=== PATIENT | female | born 1955 | race Caucasian/White ===

== ENCOUNTER 2018-08-13 22:22 | Observation (INO) | payer MEDICARE, OTHER ==
[2018-08-13] MEDS ORDERED: Sodium Chloride 0.9% 10 ML Syringe FLUSH PRN (22:41)
[2018-08-13] MEDS ORDERED: Sodium Chloride 0.9% 2.5 ML Syringe FLUSH PRN (22:41)
[2018-08-13] MEDS ORDERED: Sodium Chloride 0.9% 1,000 ML IV ONE (22:41)
[2018-08-13] MEDS ORDERED: Aspirin 81 MG Tab.Chew PO ONE (22:41)
--- NOTE | 2018-08-13 22:45 | EDM.PDOC ---
ED HPI GENERAL MEDICAL PROBLEM - General Chief Complaint: Chest Pain Stated Complaint: CHEST PAIN Time Seen by Provider: 08/13/18 22:33 - History of Present Illness INITIAL COMMENTS - FREE TEXT/NARRATIVE: HISTORY AND PHYSICAL: History of present illness: The patient is a 63-year-old female who is here visiting from [place] and has a history of cardiac disease with angioplasty and stent 6 months ago of her LAD and is currently on Brilinta and presents with 2 days of feeling weak and lightheaded, not dizzy, without passing out or blacking out and feeling very warm and lethargic. She says that for the last 2 nights while she was trying to sleep she was having a pain in her left jaw but not in her chest seemed to go up to her mandaen and she was also having some lateral left neck pain. She said that she came in today because she was having some left chest pain which did not radiate and she took one nitroglycerin and pain is gone. She is not sweating with either the headache pain or the chest pain she has no abdominal pain nausea vomiting and says she has been urinating more than usual. She says that she is eating and drinking normally and has no flank pain or back pain and no focal weakness in arms or legs. She says that she does feels very drained and that something isn't right but she has not had a fever at home only feels hot. She's having no cough or upper respiratory symptoms. Currently in the ED she has only vague complaints of feeling generalized weakness and not quite right. She says that she does have a headache because she took the nitroglycerin prior to that she was not having a headache. She says that her prior heart attack with angioplasty and stent was silent and she did not have any pain she just had posterior neck pain. Review of systems: As per history of present illness and below otherwise all systems reviewed and negative. Past medical history: As per history of present illness and as reviewed below otherwise noncontributory. Surgical history: As per history of present illness and as reviewed below otherwise noncontributory. Social history: No reported history of drug or alcohol abuse. Family history: As per history of present illness and as reviewed below otherwise noncontributory. Physical exam: General: Well-developed well-nourished female who is nontoxic and vital signs are noted by me HEENT: Atraumatic, normocephalic, pupils reactive, negative for conjunctival pallor or scleral icterus, mucous membranes moist, throat clear, neck supple, nontender, trachea midline. There is no specific tenderness with palpation of the left neck and jaw or face and there is no temporal artery tenderness on the left Lungs: Clear to auscultation, breath sounds equal bilaterally, chest nontender. Heart: S1S2, regular rate and rhythm no overt murmurs Abdomen: Soft, nondistended, nontender. Negative for masses or hepatosplenomegaly. NABS Pelvis: Stable nontender. Genitourinary: Deferred. Rectal: Deferred. Extremities: Atraumatic, negative for cords or calf pain. Neurovascular unremarkable. No pedal edema or leg asymmetry Neuro: Awake, alert, oriented. Cranial nerves II through XII unremarkable. Cerebellum unremarkable. Motor and sensory unremarkable throughout. Exam nonfocal. Diagnostics: EKG CBC CMP troponin UA with reflex sedimentation rate orthostatic vitals CT scan of the head chest x-ray Therapeutics: IV O2 monitor aspirin IV fluids, potassium by mouth On orthostatic vitals the patient's blood pressure did change from supine to standing from 150/70 to 128/64 without any change in heart rate or symptomatology from the patient. She is currently receiving IV fluids. She is on a beta estela so the lack of change in her heart rate is expected Patient is aware of testing results and care plan for discharge home. At this point her tests are all coming back within normal limits except some mild orthostasis on her vitals. I've advised her to push hydration and reasons to return to the ED and she states understanding. At this point she has never had chest pain here she's does feel very nervous as her prior presentation was so atypical. I told her that I could discuss this case with the hospitalist and see if he feels agreeable to watch her overnight. She would be agreeable to that and feel more comfortable with that. 0031: Case is discussed with Dr. Nichols who accepts the patient for observation admission Impression: Lightheadedness, mild orthostasis Definitive disposition and diagnosis as appropriate pending reevaluation and review of above. Left Chest Pain Score (Numeric/FACES): 6 - Related Data Allergies Allergy/AdvReac Type Severity Reaction Status Date / Time meperidine [From Demerol] Allergy Vomiting Verified 08/13/18 22:24 Home Meds: Home Meds Aspirin [Adult Low Dose Aspirin EC] 81 mg PO DAILY 08/13/18 [History] Escitalopram [Lexapro] 20 mg PO DAILY 08/13/18 [History] Metoprolol Tartrate 25 mg PO DAILY 08/13/18 [History] Montelukast [Singulair] 10 mg PO DAILY 08/13/18 [History] Nitroglycerin 0.4 mg PO ASDIRECTED 08/13/18 [History] QUEtiapine Fumarate [Quetiapine Fumarate] 50 mg PO DAILY 08/13/18 [History] Ticagrelor [Brilinta] 90 mg INH BID 08/13/18 [History] atorvaSTATin [Lipitor] 80 mg PO DAILY 08/13/18 [History] Past Medical History Cardiovascular History: Reports: Stents Other Cardiovascular History: LAD 6 months ago Respiratory History: Reports: COPD Musculoskeletal History: Reports: Osteoporosis Other Musculoskeletal History: clavicle - Infectious Disease History Infectious Disease History: Reports: Chicken Pox, Measles, Mumps - Past Surgical History HEENT Surgical History: Reports: Adenoidectomy, Tonsillectomy Respiratory Surgical History: Reports: Lung Biopsies GI Surgical History: Reports: Cholecystectomy Female Surgical History: Reports: Hysterectomy Other Musculoskeletal Surgeries/Procedures:: back surgery Social & Family History - Family History Family Medical History: Noncontributory - Tobacco Use Smoking Status *Q: Current Some Day Smoker Years of Tobacco use: 10 Packs/Tins Daily: 0.5 - Caffeine Use Caffeine Use: Reports: Soda, Tea - Recreational Drug Use Recreational Drug Use: No ED ROS GENERAL - Review of Systems Review Of Systems: ROS reveals no pertinent complaints other than HPI. ED EXAM, GENERAL - Physical Exam Exam: See Below (see Dictation) Course - Vital Signs Last Recorded V/S: Last Vital Signs Temp 35.7 C 08/13/18 22:24 Pulse 57 L 08/14/18 00:07 Resp 13 08/14/18 00:07 BP 166/79 H 08/14/18 00:07 Pulse Ox 98 08/14/18 00:07 Orthostatic Blood Pressure [ 128/64 Standing] Orthostatic Blood Pressure [ 141/68 Sitting] Orthostatic Blood Pressure [ 150/70 Supine] - Orders/Labs/Meds Orders: Active Orders 24 hr Category Date Time Status Cardiac Monitoring [RC] . DIRECTED Care 08/13/18 22:40 Active EKG Documentation Completion [RC] STAT Care 08/13/18 22:40 Active Orthostatic Vital Signs [RC] ASDIRECTED Care 08/13/18 22:41 Active Oxygen Therapy, ED [RC] ASDIRECTED Care 08/13/18 22:40 Active Pulse Oximetry [RC] ASDIRECTED Care 08/13/18 22:40 Active Sodium Chloride 0.9% [Saline Flush] Med 08/13/18 22:41 Active 10 ml FLUSH ASDIRECTED PRN Sodium Chloride 0.9% [Saline Flush] Med 08/13/18 22:41 Active 2.5 ml FLUSH ASDIRECTED PRN Saline Lock Insert [OM.PC] Stat Oth 08/13/18 22:40 Ordered Medication Orders Sodium Chloride (Saline Flush) 10 ml FLUSH ASDIRECTED PRN PRN Reason: Keep Vein Open Last Admin: 08/13/18 22:53 Dose: 10 ml Sodium Chloride (Saline Flush) 2.5 ml FLUSH ASDIRECTED PRN PRN Reason: Keep Vein Open Last Admin: 08/13/18 22:53 Dose: 2.5 ml Labs: Laboratory Tests 08/13/18 08/13/18 08/13/18 Range/Units 22:39 22:39 22:39 WBC 4.85 (4.0-11.0) K/uL RBC 4.16 L (4.30-5.90) M/uL Hgb 11.8 L (12.0-16.0) g/dL Hct 36.2 (36.0-46.0) % MCV 87.0 (80.0-98.0) fL MCH 28.4 (27.0-32.0) pg MCHC 32.6 (31.0-37.0) g/dL RDW Std Deviation 50.6 (28.0-62.0) fl RDW Coeff of Kameron 16 H (11.0-15.0) % Plt Count 220 (150-400) K/uL MPV 9.10 (7.40-12.00) fL Neut % (Auto) 56.5 (48.0-80.0) % Lymph % (Auto) 32.0 (16.0-40.0) % [place] % (Auto) 7.8 (0.0-15.0) % Eos % (Auto) 3.3 (0.0-7.0) % Baso % (Auto) 0.4 (0.0-1.5) % Neut # (Auto) 2.7 (1.4-5.7) K/uL Lymph # (Auto) 1.6 (0.6-2.4) K/uL [place] # (Auto) 0.4 (0.0-0.8) K/uL Eos # (Auto) 0.2 (0.0-0.7) K/uL Baso # (Auto) 0.0 (0.0-0.1) K/uL Nucleated RBC % 0.0 /100WBC Nucleated RBCs # 0 K/uL ESR 11 (0-29) mm/hr Sodium 136 (136-145) mmol/L Potassium 3.3 L (3.5-5.1) mmol/L Chloride 106 (98-107) mmol/L Carbon Dioxide 20.9 L (21.0-32.0) mmol/L BUN 9 (7.0-18.0) mg/dL Creatinine 0.6 (0.6-1.0) mg/dL Est Cr Clr Drug Dosing 77.33 mL/min Estimated GFR (MDRD) > 60.0 ml/min Glucose 108 H (74-106) mg/dL Calcium 8.9 (8.5-10.1) mg/dL Total Bilirubin 0.3 (0.2-1.0) mg/dL AST 21 (15-37) IU/L ALT 34 (14-63) IU/L Alkaline Phosphatase 106 (46-116) U/L Troponin I < 0.050 (0.000-0.056) ng/mL Total Protein 6.7 (6.4-8.2) g/dL Albumin 3.9 (3.4-5.0) g/dL Globulin 2.8 (2.6-4.0) g/dL Albumin/Globulin Ratio 1.4 (0.9-1.6) Urine Color Urine Appearance Urine pH (5.0-8.0) Ur Specific [place] (1.001-1.035) Urine Protein (NEGATIVE) mg/dL Urine Glucose (UA) (NEGATIVE) mg/dL Urine Ketones (NEGATIVE) mg/dL Urine Occult Blood (NEGATIVE) Urine Nitrite (NEGATIVE) Urine Bilirubin (NEGATIVE) Urine Urobilinogen (<2.0) EU/dL Ur Leukocyte Esterase (NEGATIVE) 08/14/18 Range/Units 00:05 WBC (4.0-11.0) K/uL RBC (4.30-5.90) M/uL Hgb (12.0-16.0) g/dL Hct (36.0-46.0) % MCV (80.0-98.0) fL MCH (27.0-32.0) pg MCHC (31.0-37.0) g/dL RDW Std Deviation (28.0-62.0) fl RDW Coeff of Kameron (11.0-15.0) % Plt Count (150-400) K/uL MPV (7.40-12.00) fL Neut % (Auto) (48.0-80.0) % Lymph % (Auto) (16.0-40.0) % [place] % (Auto) (0.0-15.0) % Eos % (Auto) (0.0-7.0) % Baso % (Auto) (0.0-1.5) % Neut # (Auto) (1.4-5.7) K/uL Lymph # (Auto) (0.6-2.4) K/uL [place] # (Auto) (0.0-0.8) K/uL Eos # (Auto) (0.0-0.7) K/uL Baso # (Auto) (0.0-0.1) K/uL Nucleated RBC % /100WBC Nucleated RBCs # K/uL ESR (0-29) mm/hr Sodium (136-145) mmol/L Potassium (3.5-5.1) mmol/L Chloride (98-107) mmol/L Carbon Dioxide (21.0-32.0) mmol/L BUN (7.0-18.0) mg/dL Creatinine (0.6-1.0) mg/dL Est Cr Clr Drug Dosing mL/min Estimated GFR (MDRD) ml/min Glucose (74-106) mg/dL Calcium (8.5-10.1) mg/dL Total Bilirubin (0.2-1.0) mg/dL AST (15-37) IU/L ALT (14-63) IU/L Alkaline Phosphatase (46-116) U/L Troponin I (0.000-0.056) ng/mL Total Protein (6.4-8.2) g/dL Albumin (3.4-5.0) g/dL Globulin (2.6-4.0) g/dL Albumin/Globulin Ratio (0.9-1.6) Urine Color YELLOW Urine Appearance CLEAR Urine pH 6.0 (5.0-8.0) Ur Specific [place] <= 1.005 (1.001-1.035) Urine Protein NEGATIVE (NEGATIVE) mg/dL Urine Glucose (UA) NEGATIVE (NEGATIVE) mg/dL Urine Ketones NEGATIVE (NEGATIVE) mg/dL Urine Occult Blood NEGATIVE (NEGATIVE) Urine Nitrite NEGATIVE (NEGATIVE) Urine Bilirubin NEGATIVE (NEGATIVE) Urine Urobilinogen 0.2 (<2.0) EU/dL Ur Leukocyte Esterase NEGATIVE (NEGATIVE) Meds: Medications Generic Name Dose Route Start Last Admin Trade Name Freq PRN Reason Stop Dose Admin Sodium Chloride 10 ml 08/13/18 22:41 08/13/18 22:53 Saline Flush FLUSH 10 ml ASDIRECTED PRN Administration Keep Vein Open Sodium Chloride 2.5 ml 08/13/18 22:41 08/13/18 22:53 Saline Flush FLUSH 2.5 ml ASDIRECTED PRN Administration Keep Vein Open Discontinued Medications Generic Name Dose Route Start Last Admin Trade Name Freq PRN Reason Stop Dose Admin Aspirin 324 mg 08/13/18 22:41 08/13/18 22:53 Aspirin PO 08/13/18 22:42 324 mg ONETIME ONE Administration Sodium Chloride 1,000 mls @ 999 mls/hr 08/13/18 22:41 08/13/18 22:52 Normal Saline IV 08/13/18 23:41 999 mls/hr STAT ONE Administration Potassium Chloride 40 meq 08/13/18 23:28 08/14/18 00:08 Klor-Con M20 PO 08/13/18 23:29 40 meq ONETIME ONE Administration Departure - Departure Time of Disposition: 00:12 Disposition: Refer to Observation Condition: Good Clinical Impression: Lightheadedness, Orthostasis - Discharge Information Referrals: PCP,None [Primary Care Provider] - Forms: ED Department Discharge - My Orders Last 24 Hours: My Active Orders 08/13/18 22:40 Cardiac Monitoring [RC] . DIRECTED EKG Documentation Completion [RC] STAT Oxygen Therapy, ED [RC] ASDIRECTED Pulse Oximetry [RC] ASDIRECTED Saline Lock Insert [OM.PC] Stat 08/13/18 22:41 Orthostatic Vital Signs [RC] ASDIRECTED Sodium Chloride 0.9% [Saline Flush] 10 ml FLUSH ASDIRECTED PRN Sodium Chloride 0.9% [Saline Flush] 2.5 ml FLUSH ASDIRECTED PRN - Assessment/Plan Last 24 Hours: My Active Orders 08/13/18 22:40 Cardiac Monitoring [RC] . DIRECTED EKG Documentation Completion [RC] STAT Oxygen Therapy, ED [RC] ASDIRECTED Pulse Oximetry [RC] ASDIRECTED Saline Lock Insert [OM.PC] Stat 08/13/18 22:41 Orthostatic Vital Signs [RC] ASDIRECTED Sodium Chloride 0.9% [Saline Flush] 10 ml FLUSH ASDIRECTED PRN Sodium Chloride 0.9% [Saline Flush] 2.5 ml FLUSH ASDIRECTED PRN
[2018-08-13 23:05] LABS: CHLORIDE,CL 106 mmol/L (98-107); SODIUM,NA 136 mmol/L (136-145)
[2018-08-13] MEDS ORDERED: Potassium Chloride 20 MEQ Tab.ER PO ONE (23:28)
--- NOTE | 2018-08-13 23:46 | CR ---
INDICATION: Chest pain TECHNIQUE: Chest radiograph 1 view COMPARISON: None FINDINGS: Mediastinum: The mediastinum is normal in appearance. The heart silhouette is normal in size and morphology. Lung: Both lungs are unremarkable in appearance. No sign of pleural effusion seen. No pneumothorax is identified. with metallic compression plate noted. IMPRESSION: 1. No acute cardiopulmonary disease is seen. Dictated by: Mandeep Bella MD @ 08/13/2018 23:45:15 (Electronically Signed)
--- NOTE | 2018-08-14 | CT ---
INDICATION: Headache TECHNIQUE: CT Head without i.v. contrast. COMPARISON: None FINDINGS: CSF space: Unremarkable for age. Brain: No evidence of mass, acute infarction or hemorrhage is seen. No mass-effect or midline shift is seen. Mild diffuse cortical atrophy is noted. The brain parenchyma is otherwise normal in appearance with preservation of the rizzo-white matter junction. Calvarium: The visualized paranasal sinuses are well aerated. The mastoid air cells are clear. The visualized orbits are grossly unremarkable. The calvarium is unremarkable in appearance with no fractures identified. IMPRESSION: 1. No evidence of acute infarction, intracranial hemorrhage, or mass-effect seen. Please note that all CT scans at this facility use dose modulation, iterative reconstruction, and/or weight-based dosing when appropriate to reduce radiation dose to as low as reasonably achievable. Dictated by: Mandeep Bella MD @ 08/13/2018 23:57:59 (Electronically Signed)
[2018-08-14] MEDS ORDERED: Ondansetron 4 MG Tab.DIS PO PRN (01:15)
[2018-08-14] MEDS ORDERED: Acetaminophen 325 MG Tab PO PRN (01:15)
[2018-08-14] MEDS ORDERED: Temazepam 15 MG Cap PO PRN (01:36)
--- NOTE | 2018-08-14 06:42 | PCM.HP ---
H&P History of Present Illness - General Date of Service: 08/14/18 Admit Problem/Dx: Admission Diagnosis/Problem Admission Diagnosis/Problem Orthostasis Source of Information: Patient History Limitations: Reports: No Limitations - History of Present Illness Initial Comments - Free Text/Narative: The patient is a 63-year-old lady who presented to the emergency department with a complaint of fatigue, dizziness or lightheadedness and generally not feeling well. The patient is visiting from [place]. The patient was also noted to have a myocardial infarction 6 months ago to her left anterior descending artery which was stented. The patient is currently on Brilinta post- stenting. The patient says that for her previous LA she had only reported to have pain in her right sided neck. The patient has denied any chest pain. Patient also has been complaining about left temporal pain that she says feels like spikes. This is been going on without radiation for the past several days. The patient is planning on returning to [place] in a couple of months. The patient has denied any nausea or vomiting. She's had no specific aggravating or relieving factors. The patient was also concerned about going home from the emergency department. Onset of Symptoms: Reports: Gradual Duration of Symptoms: Reports: Day(s): Location: Reports: Chest Quality: Reports: Dull Severity: Mild Improves with: Reports: None Worsens with: Reports: None Associated Symptoms: Reports: Diaphoresis, Headaches, Weakness Left Chest Pain Score (Numeric/FACES): 6 Left Head Pain Score (Numeric/FACES): 2 - Related Data Allergies/Adverse Reactions: Allergies Allergy/AdvReac Type Severity Reaction Status Date / Time meperidine [From Demerol] Allergy Vomiting Verified 08/13/18 22:24 Home Medications: Home Meds Aspirin [Adult Low Dose Aspirin EC] 81 mg PO DAILY 08/13/18 [History] Escitalopram [Lexapro] 20 mg PO DAILY 08/13/18 [History] Metoprolol Tartrate 25 mg PO DAILY 08/13/18 [History] Montelukast [Singulair] 10 mg PO DAILY 08/13/18 [History] Nitroglycerin 0.4 mg PO ASDIRECTED 08/13/18 [History] QUEtiapine Fumarate [Quetiapine Fumarate] 50 mg PO DAILY 08/13/18 [History] Ticagrelor [Brilinta] 90 mg INH BID 08/13/18 [History] atorvaSTATin [Lipitor] 80 mg PO DAILY 08/13/18 [History] traMADol [Ultram] 50 mg PO Q6H PRN #10 tab 08/14/18 [Rx] Past Medical History HEENT History: Reports: None Cardiovascular History: Reports: CAD, Hypertension, LA, Stents Other Cardiovascular History: LAD 6 months ago Respiratory History: Reports: COPD Gastrointestinal History: Reports: None Genitourinary History: Reports: None Musculoskeletal History: Reports: Osteoporosis Other Musculoskeletal History: clavicle Neurological History: Reports: None Psychiatric History: Reports: None Endocrine/Metabolic History: Reports: None Hematologic History: Reports: None Immunologic History: Reports: None Oncologic (Cancer) History: Reports: None Dermatologic History: Reports: None - Infectious Disease History Infectious Disease History: Reports: Chicken Pox, Measles, Mumps - Past Surgical History HEENT Surgical History: Reports: Adenoidectomy, Tonsillectomy Respiratory Surgical History: Reports: Lung Biopsies GI Surgical History: Reports: Cholecystectomy Female Surgical History: Reports: Hysterectomy Other Musculoskeletal Surgeries/Procedures:: back surgery Social & Family History - Family History Family Medical History: Noncontributory - Tobacco Use Smoking Status *Q: Current Every Day Smoker Years of Tobacco use: 10 Packs/Tins Daily: 0.5 Used Tobacco, but Quit: No Second Hand Smoke Exposure: No - Caffeine Use Caffeine Use: Reports: Soda - Recreational Drug Use Recreational Drug Use: No - Living Situation & Occupation Living situation: Reports: Occupation: Unemployed H&P Review of Systems - Review of Systems: Review Of Systems: See Below General: Reports: Weakness, Fatigue HEENT: Reports: No Symptoms Pulmonary: Reports: No Symptoms Cardiovascular: Reports: Lightheadedness Gastrointestinal: Reports: No Symptoms Genitourinary: Reports: No Symptoms Musculoskeletal: Reports: No Symptoms Skin: Reports: No Symptoms Psychiatric: Reports: No Symptoms Neurological: Reports: Headache Hematologic/Lymphatic: Reports: No Symptoms Immunologic: Reports: No Symptoms Exam - Exam Exam: See Below - Vital Signs Vital Signs: Last Vital Signs Temp 36.4 C 08/14/18 04:00 Pulse 60 08/14/18 04:00 Resp 16 08/14/18 04:00 BP 127/71 08/14/18 04:00 Pulse Ox 98 08/14/18 04:00 Orthostatic Blood Pressure [ 128/64 Standing] Orthostatic Blood Pressure [ 141/68 Sitting] Orthostatic Blood Pressure [ 150/70 Supine] Weight: 73.936 kg - Exam Quality Assessment: No: Supplemental Oxygen General: Alert, Oriented, Cooperative HEENT: Conjunctiva Clear, EACs Clear, EOMI, Pupils Equal, Other (Tender left temporal artery area), PERRLA. No: Mucosa Moist & [place] (Dry) Neck: Supple, Trachea Midline Lungs: Clear to Auscultation, Normal Respiratory Effort Cardiovascular: Regular Rate, Regular Rhythm GI/Abdominal Exam: Normal Bowel Sounds, Soft, Non-Tender, No Distention Back Exam: Normal Inspection, Full Range of Motion Extremities: Normal Inspection, Normal Range of Motion, No Pedal Edema Skin: Warm, Dry, Intact Neurological: Cranial Nerves Intact Neuro Extensive - Mental Status: Alert Psychiatric: Alert, Normal Affect, Normal Mood - Patient Data Lab Results Last 24 hrs: Laboratory Results - last 24 hr 08/13/18 08/13/18 08/13/18 Range/Units 22:39 22:39 22:39 WBC 4.85 (4.0-11.0) K/uL RBC 4.16 L (4.30-5.90) M/uL Hgb 11.8 L (12.0-16.0) g/dL Hct 36.2 (36.0-46.0) % MCV 87.0 (80.0-98.0) fL MCH 28.4 (27.0-32.0) pg MCHC 32.6 (31.0-37.0) g/dL RDW Std Deviation 50.6 (28.0-62.0) fl RDW Coeff of [place] 16 H (11.0-15.0) % Plt Count 220 (150-400) K/uL MPV 9.10 (7.40-12.00) fL Neut % (Auto) 56.5 (48.0-80.0) % Lymph % (Auto) 32.0 (16.0-40.0) % Emery % (Auto) 7.8 (0.0-15.0) % Eos % (Auto) 3.3 (0.0-7.0) % Baso % (Auto) 0.4 (0.0-1.5) % Neut # (Auto) 2.7 (1.4-5.7) K/uL Lymph # (Auto) 1.6 (0.6-2.4) K/uL Emery # (Auto) 0.4 (0.0-0.8) K/uL Eos # (Auto) 0.2 (0.0-0.7) K/uL Baso # (Auto) 0.0 (0.0-0.1) K/uL Nucleated RBC % 0.0 /100WBC Nucleated RBCs # 0 K/uL ESR 11 (0-29) mm/hr Sodium 136 (136-145) mmol/L Potassium 3.3 L (3.5-5.1) mmol/L Chloride 106 (98-107) mmol/L Carbon Dioxide 20.9 L (21.0-32.0) mmol/L BUN 9 (7.0-18.0) mg/dL Creatinine 0.6 (0.6-1.0) mg/dL Est Cr Clr Drug Dosing 77.33 mL/min Estimated GFR (MDRD) > 60.0 ml/min Glucose 108 H (74-106) mg/dL Calcium 8.9 (8.5-10.1) mg/dL Total Bilirubin 0.3 (0.2-1.0) mg/dL AST 21 (15-37) IU/L ALT 34 (14-63) IU/L Alkaline Phosphatase 106 (46-116) U/L Troponin I < 0.050 (0.000-0.056) ng/mL Total Protein 6.7 (6.4-8.2) g/dL Albumin 3.9 (3.4-5.0) g/dL Globulin 2.8 (2.6-4.0) g/dL Albumin/Globulin Ratio 1.4 (0.9-1.6) Urine Color Urine Appearance Urine pH (5.0-8.0) Ur Specific [place] (1.001-1.035) Urine Protein (NEGATIVE) mg/dL Urine Glucose (UA) (NEGATIVE) mg/dL Urine Ketones (NEGATIVE) mg/dL Urine Occult Blood (NEGATIVE) Urine Nitrite (NEGATIVE) Urine Bilirubin (NEGATIVE) Urine Urobilinogen (<2.0) EU/dL Ur Leukocyte Esterase (NEGATIVE) 08/14/18 08/14/18 Range/Units 00:05 05:48 WBC (4.0-11.0) K/uL RBC (4.30-5.90) M/uL Hgb (12.0-16.0) g/dL Hct (36.0-46.0) % MCV (80.0-98.0) fL MCH (27.0-32.0) pg MCHC (31.0-37.0) g/dL RDW Std Deviation (28.0-62.0) fl RDW Coeff of [place] (11.0-15.0) % Plt Count (150-400) K/uL MPV (7.40-12.00) fL Neut % (Auto) (48.0-80.0) % Lymph % (Auto) (16.0-40.0) % Emery % (Auto) (0.0-15.0) % Eos % (Auto) (0.0-7.0) % Baso % (Auto) (0.0-1.5) % Neut # (Auto) (1.4-5.7) K/uL Lymph # (Auto) (0.6-2.4) K/uL Emery # (Auto) (0.0-0.8) K/uL Eos # (Auto) (0.0-0.7) K/uL Baso # (Auto) (0.0-0.1) K/uL Nucleated RBC % /100WBC Nucleated RBCs # K/uL ESR (0-29) mm/hr Sodium (136-145) mmol/L Potassium (3.5-5.1) mmol/L Chloride (98-107) mmol/L Carbon Dioxide (21.0-32.0) mmol/L BUN (7.0-18.0) mg/dL Creatinine (0.6-1.0) mg/dL Est Cr Clr Drug Dosing mL/min Estimated GFR (MDRD) ml/min Glucose (74-106) mg/dL Calcium (8.5-10.1) mg/dL Total Bilirubin (0.2-1.0) mg/dL AST (15-37) IU/L ALT (14-63) IU/L Alkaline Phosphatase (46-116) U/L Troponin I < 0.050 (0.000-0.056) ng/mL Total Protein (6.4-8.2) g/dL Albumin (3.4-5.0) g/dL Globulin (2.6-4.0) g/dL Albumin/Globulin Ratio (0.9-1.6) Urine Color YELLOW Urine Appearance CLEAR Urine pH 6.0 (5.0-8.0) Ur Specific [place] <= 1.005 (1.001-1.035) Urine Protein NEGATIVE (NEGATIVE) mg/dL Urine Glucose (UA) NEGATIVE (NEGATIVE) mg/dL Urine Ketones NEGATIVE (NEGATIVE) mg/dL Urine Occult Blood NEGATIVE (NEGATIVE) Urine Nitrite NEGATIVE (NEGATIVE) Urine Bilirubin NEGATIVE (NEGATIVE) Urine Urobilinogen 0.2 (<2.0) EU/dL Ur Leukocyte Esterase NEGATIVE (NEGATIVE) Result Diagrams: 08/13/18 22:39 08/13/18 22:39 - Problem List (1) Dehydration SNOMED Code(s): 30569091 ICD Code: E86.0 - DEHYDRATION Status: Resolved Priority: High Current Visit: Yes (2) Coronary artery disease SNOMED Code(s): 81472109 ICD Code: I25.10 - ATHSCL HEART DISEASE OF [place] CORONARY ARTERY W/O ANG PCTRS Status: Chronic Priority: High Current Visit: Yes Qualifiers: Coronary Disease-Associated Artery/Lesion type: [place] artery [place] vs. transplanted heart: [place] heart Associated angina: without angina Qualified Code(s): I25.10 - Atherosclerotic heart disease of [place] coronary artery without angina pectoris (3) Stented coronary artery Status: Chronic Priority: High Current Visit: Yes (4) Hypertension SNOMED Code(s): 65898024 ICD Code: I10 - ESSENTIAL (PRIMARY) HYPERTENSION Status: Chronic Priority : Medium Current Visit: Yes Qualifiers: Hypertension type: essential hypertension Qualified Code(s): I10 - Essential (primary) hypertension (5) Dyslipidemia SNOMED Code(s): 694047858 ICD Code: E78.5 - HYPERLIPIDEMIA, UNSPECIFIED Status: Chronic Priority: Medium Current Visit: Yes (6) Left temporal headache SNOMED Code(s): 00932611 ICD Code: R51 - HEADACHE Status: Acute Priority: High Current Visit: Yes Problem List Initiated/Reviewed/Updated: Yes Orders Last 24hrs: Active Orders 24 hr Category Date Time Status Patient Status [ADT] Stat ADT 08/14/18 00:34 Active Antiembolic Devices [RC] PER UNIT ROUTINE Care 08/14/18 01:16 Active Cardiac Monitoring [RC] . DIRECTED Care 08/13/18 22:40 Active Cardiac Monitoring [RC] Q8H Care 08/14/18 01:18 Active EKG Documentation Completion [RC] STAT Care 08/13/18 22:40 Active Orthostatic Vital Signs [RC] ASDIRECTED Care 08/13/18 22:41 Active Oxygen Therapy [RC] PRN Care 08/14/18 01:15 Active Oxygen Therapy, ED [RC] ASDIRECTED Care 08/13/18 22:40 Active Pulse Oximetry [RC] ASDIRECTED Care 08/13/18 22:40 Active Telemetry Monitoring [Cardiac Monitoring] [RC] . Care 08/14/18 01:11 Active DIRECTED Up ad Patricia [RC] ASDIRECTED Care 08/14/18 01:15 Active VTE/DVT Education [RC] PER UNIT ROUTINE Care 08/14/18 01:15 Active Vital Signs [RC] Q4H Care 08/14/18 01:15 Active Heart Healthy Diet [DIET] Diet 08/14/18 Breakfast Active TROPONIN I [CHEM] Q6H Lab 08/14/18 11:11 Ordered Acetaminophen [Tylenol] Med 08/14/18 01:15 Active 650 mg PO Q4H PRN Aspirin [Halfprin] Med 08/14/18 09:00 Active 81 mg PO DAILY Escitalopram Med 08/14/18 09:00 Active 20 mg PO DAILY Metoprolol Tartrate [Lopressor] Med 08/14/18 09:00 Active 25 mg PO DAILY Montelukast [Singulair] Med 08/14/18 09:00 Active 10 mg PO DAILY Ondansetron [Zofran ODT] Med 08/14/18 01:15 Active 4 mg PO Q6H PRN QUEtiapine [SEROquel] Med 08/14/18 09:00 Active 50 mg PO DAILY Sodium Chloride 0.9% [Saline Flush] Med 08/13/18 22:41 Active 10 ml FLUSH ASDIRECTED PRN Sodium Chloride 0.9% [Saline Flush] Med 08/13/18 22:41 Active 2.5 ml FLUSH ASDIRECTED PRN Temazepam [Restoril] Med 08/14/18 01:36 Active 15 mg PO BEDTIME PRN Ticagrelor Med 08/14/18 09:00 Active 90 mg INH BID atorvaSTATin [Lipitor] Med 08/14/18 09:00 Active 80 mg PO DAILY oxyCODONE Med 08/14/18 01:15 Active 5 mg PO Q4H PRN Saline Lock Insert [OM.PC] Stat Oth 08/13/18 22:40 Ordered Sequential Compression Device [OM.PC] Per Unit Routine Oth 08/14/18 01:16 Ordered Resuscitation Status Routine Resus Stat 08/14/18 01:15 Ordered Medication Orders Acetaminophen (Tylenol) 650 mg PO Q4H PRN PRN Reason: Pain (Mild 1-3)/fever Last Admin: 08/14/18 06:34 Dose: 650 mg Aspirin (Halfprin) 81 mg PO DAILY ELLE Atorvastatin Calcium (Lipitor) 80 mg PO DAILY [facility]LE Metoprolol Tartrate (Lopressor) 25 mg PO DAILY [facility]LE Montelukast Sodium (Singulair) 10 mg PO DAILY [facility] Non-Formulary Medication (Escitalopram) 20 mg PO DAILY [place] Non-Formulary Medication (Ticagrelor) 90 mg INH BID [place] Ondansetron HCl (Zofran Odt) 4 mg PO Q6H PRN PRN Reason: nausea, able to take PO Oxycodone HCl (Oxycodone) 5 mg PO Q4H PRN PRN Reason: Pain (moderate 4-6) Quetiapine Fumarate (Seroquel) 50 mg PO DAILY [facility] Sodium Chloride (Saline Flush) 10 ml FLUSH ASDIRECTED PRN PRN Reason: Keep Vein Open Last Admin: 08/13/18 22:53 Dose: 10 ml Sodium Chloride (Saline Flush) 2.5 ml FLUSH ASDIRECTED PRN PRN Reason: Keep Vein Open Last Admin: 08/13/18 22:53 Dose: 2.5 ml Temazepam (Restoril) 15 mg PO BEDTIME PRN PRN Reason: Sleep Last Admin: 08/14/18 01:44 Dose: 15 mg Assessment/Plan Comment:: The patient is a 63-year-old lady who had been admitted to observation out of concern for coronary artery anginal equivalents. The patient will have a total of 3 troponins taken, she was kept on telemetry and repeat EKG has been ordered. The patient does have some tenderness in her left temporal area although with her sedimentation rate of 11 temporal arteritis is much less likely. The patient will be continued on her home medications to include Brilinta and her other anti-hypertensives. The patient be kept on a cardiac diet as tolerated. She also have DVT prophylaxis. If the patient's troponins are otherwise negative and her EKG does not show signs of changes she should be appropriate for discharge later today. Overall during the short course of hospitalization the patient has improved significantly. Troponins have been negative. The patient is to follow-up with her primary care physician. The patient also showed continue with a diabetic diet as tolerated. Further, the patient should have activity as tolerated. She has been hemodynamically stable and she is discharged from acute hospitalization with recommendations listed above. This history and physical also serve as a discharge summary.
[2018-08-14] MEDS: oxyCODONE 5 MG Tab PO PRN ×2 (07:33→11:26)
[2018-08-14] MEDS ORDERED: Metoprolol Tartrate 50 MG Tab PO SCH (09:00)
[2018-08-14] MEDS ORDERED: atorvaSTATin 40 MG Tab PO SCH (09:00)
[2018-08-14] MEDS ORDERED: Non-Formulary Medication 1 Each (Ticagrelor 90 MG) INH SCH (09:00)
[2018-08-14] MEDS ORDERED: Escitalopram 10 MG Tab PO SCH (09:00)
[2018-08-14] MEDS ORDERED: Montelukast 10 MG Tab PO SCH (09:00)
[2018-08-14] MEDS ORDERED: Aspirin 81 MG Tab.EC PO SCH (09:00)
== END 2018-08-14 14:25 | disposition home or self-care (01) ==
LOC: MW.ED 22:22 → MW.MS 08-14 00:49
PROVIDERS: ADMIT Internal Medicine; ATTEND Internal Medicine
DX: I95.1 Orthostatic hypotension (principal); I25.10 Atherosclerotic heart disease of native coronary artery without angina pectoris; I25.2 Old myocardial infarction; E86.0 Dehydration; R51 Headache; I10 Essential (primary) hypertension; J44.9 Chronic obstructive pulmonary disease, unspecified; M81.0 Age-related osteoporosis without current pathological fracture; F17.210 Nicotine dependence, cigarettes, uncomplicated; Z88.5 Allergy status to narcotic agent; Z79.82 Long term (current) use of aspirin; Z79.52 Long term (current) use of systemic steroids; Z79.899 Other long term (current) drug therapy; Z95.5 Presence of coronary angioplasty implant and graft
CPT/HCPCS: 36415; 70450; 71045; 80053; 81003; 84484; 85025; 85652; 93005; 96360; 96361; 99285; A9270; G0378; J7040

== ENCOUNTER 2019-02-15 12:52 | Observation (INO) | payer MEDICARE ==
[2019-02-15] MEDS ORDERED: Aspirin 81 MG Tab.Chew PO ONE (12:55)
[2019-02-15] MEDS ORDERED: Ondansetron 4 MG/2 ML SDV IVPUSH ONE (13:08)
[2019-02-15] MEDS ORDERED: Morphine 2 MG/ML Syringe IVPUSH ONE ×2 (13:26→15:29)
--- NOTE | 2019-02-15 13:30 | EDM.PDOC ---
ED HPI GENERAL MEDICAL PROBLEM - General Chief Complaint: Chest Pain Stated Complaint: CHEST PAIN,SHORTNESS OF BREATHE Time Seen by Provider: 02/15/19 13:29 Source of Information: Reports: Patient - History of Present Illness INITIAL COMMENTS - FREE TEXT/NARRATIVE: HISTORY AND PHYSICAL: History of present illness: [ pt with h/o AL last year presents with chest pain radiating to left shoulder improved by NTG at home, pain returned to day no radiation to neck or jaw, no sob/diapheresis no f/n/v/c/s/ ] Review of systems: As per history of present illness and below otherwise all systems reviewed and negative. Past medical history: As per history of present illness and as reviewed below otherwise noncontributory. Surgical history: As per history of present illness and as reviewed below otherwise noncontributory. Social history: No reported history of drug or alcohol abuse. Family history: As per history of present illness and as reviewed below otherwise noncontributory. Physical exam: HEENT: Atraumatic, normocephalic, pupils reactive, negative for conjunctival pallor or scleral icterus, mucous membranes moist, throat clear, neck supple, nontender, trachea midline. Lungs: Clear to auscultation, breath sounds equal bilaterally, reproducible chest wall discomfort on left Heart: S1S2, regular, negative for clicks, rubs, or JVD. Abdomen: Soft, nondistended, nontender. Negative for masses or hepatosplenomegaly. Negative for costovertebral tenderness. Pelvis: Stable nontender. Genitourinary: Deferred. Rectal: Deferred. Extremities: Atraumatic, negative for cords or calf pain. Neurovascular unremarkable. Neuro: Awake, alert, oriented. Cranial nerves II through XII unremarkable. Cerebellum unremarkable. Motor and sensory unremarkable throughout. Exam nonfocal. Diagnostics: [cbc, cmp, trop, influ chest ekg ] Therapeutics: [NS ASA MS NTG ] Impression: [ACS ] Definitive disposition and diagnosis as appropriate pending reevaluation and review of above. chest Pain Score (Numeric/FACES): 8 - Related Data Allergies Allergy/AdvReac Type Severity Reaction Status Date / Time meperidine [From Demerol] Allergy Vomiting Verified 02/15/19 13:03 Home Meds: Home Meds Aspirin [Adult Low Dose Aspirin EC] 81 mg PO DAILY 08/13/18 [History] Escitalopram [Lexapro] 20 mg PO DAILY 08/13/18 [History] Montelukast [Singulair] 10 mg PO DAILY 08/13/18 [History] Nitroglycerin 0.4 mg PO ASDIRECTED 08/13/18 [History] QUEtiapine Fumarate [Quetiapine Fumarate] 50 mg PO DAILY 08/13/18 [History] Ticagrelor [Brilinta] 90 mg INH BID 08/13/18 [History] atorvaSTATin [Lipitor] 80 mg PO DAILY 08/13/18 [History] Past Medical History HEENT History: Reports: None Cardiovascular History: Reports: CAD, Hypertension, AL, Stents Other Cardiovascular History: LAD Respiratory History: Reports: COPD Gastrointestinal History: Reports: None Genitourinary History: Reports: None Musculoskeletal History: Reports: Osteoporosis Other Musculoskeletal History: clavicle Neurological History: Reports: None Psychiatric History: Reports: None Endocrine/Metabolic History: Reports: None Hematologic History: Reports: None Immunologic History: Reports: None Oncologic (Cancer) History: Reports: None Dermatologic History: Reports: None - Infectious Disease History Infectious Disease History: Reports: Chicken Pox, Measles, Mumps - Past Surgical History HEENT Surgical History: Reports: Adenoidectomy, Tonsillectomy Respiratory Surgical History: Reports: Lung Biopsies GI Surgical History: Reports: Cholecystectomy Female Surgical History: Reports: Hysterectomy Other Musculoskeletal Surgeries/Procedures:: back surgery Social & Family History - Family History Family Medical History: Noncontributory - Tobacco Use Smoking Status *Q: Current Every Day Smoker Years of Tobacco use: 10 Packs/Tins Daily: 0.5 - Caffeine Use Caffeine Use: Reports: Soda - Recreational Drug Use Recreational Drug Use: No - Living Situation & Occupation Living situation: Reports: Occupation: Unemployed ED ROS GENERAL - Review of Systems Review Of Systems: See Below ED EXAM, GENERAL - Physical Exam Exam: See Below Course - Vital Signs Last Recorded V/S: Last Vital Signs Temp 96.0 F 02/15/19 13:01 Pulse 64 02/15/19 13:53 Resp 18 02/15/19 13:01 BP 104/54 L 02/15/19 13:53 Pulse Ox 97 02/15/19 13:53 - Orders/Labs/Meds Orders: Active Orders 24 hr Category Date Time Status EKG Documentation Completion [RC] STAT Care 02/15/19 12:54 Active COMPREHENSIVE METABOLIC PN,CMP [CHEM] Stat Lab 02/15/19 13:03 Received TROPONIN I [CHEM] Stat Lab 02/15/19 13:03 Received Nitroglycerin [Nitrostat] Med 02/15/19 13:37 Active 0.4 mg SL Q5M PRN Medication Orders Nitroglycerin (Nitrostat) 0.4 mg SL Q5M PRN PRN Reason: Chest Pain Last Admin: 02/15/19 13:47 Dose: 0.4 mg Labs: Laboratory Tests 02/15/19 02/15/19 Range/Units 13:03 13:03 WBC 4.69 (4.0-11.0) K/uL RBC 4.18 L (4.30-5.90) M/uL Hgb 13.0 (12.0-16.0) g/dL Hct 38.8 (36.0-46.0) % MCV 92.8 (80.0-98.0) fL MCH 31.1 (27.0-32.0) pg MCHC 33.5 (31.0-37.0) g/dL RDW Std Deviation 59.1 (28.0-62.0) fl RDW Coeff of [place] 17 H (11.0-15.0) % Plt Count 196 (150-400) K/uL MPV 9.10 (7.40-12.00) fL Neut % (Auto) 69.1 (48.0-80.0) % Lymph % (Auto) 18.1 (16.0-40.0) % Lewis % (Auto) 10.9 (0.0-15.0) % Eos % (Auto) 1.5 (0.0-7.0) % Baso % (Auto) 0.4 (0.0-1.5) % Neut # (Auto) 3.2 (1.4-5.7) K/uL Lymph # (Auto) 0.9 (0.6-2.4) K/uL Lewis # (Auto) 0.5 (0.0-0.8) K/uL Eos # (Auto) 0.1 (0.0-0.7) K/uL Baso # (Auto) 0.0 (0.0-0.1) K/uL Nucleated RBC % 0.0 /100WBC Nucleated RBCs # 0 K/uL INR 0.96 Meds: Medications Generic Name Dose Route Start Last Admin Trade Name Freq PRN Reason Stop Dose Admin Nitroglycerin 0.4 mg 02/15/19 13:37 02/15/19 13:47 Nitrostat SL 0.4 mg Q5M PRN Administration Chest Pain Discontinued Medications Generic Name Dose Route Start Last Admin Trade Name Freneel PRN Reason Stop Dose Admin Aspirin 324 mg 02/15/19 12:55 02/15/19 13:15 Aspirin PO 02/15/19 12:56 324 mg ONETIME ONE Administration Morphine Sulfate 2 mg 02/15/19 13:26 02/15/19 13:32 Morphine IVPUSH 02/15/19 13:27 2 mg ONETIME ONE Administration Ondansetron HCl 8 mg 02/15/19 13:08 02/15/19 13:15 Zofran IVPUSH 02/15/19 13:09 8 mg ONETIME ONE Administration Departure - Departure Time of Disposition: 14:01 Disposition: Refer to Observation Condition: Fair Clinical Impression: Acute coronary syndrome - Discharge Information Referrals: PCP,Not In Area [Primary Care Provider] - Forms: ED Department Discharge Sepsis Event Note - Evaluation Sepsis Screening Result: No Definite Risk - Focused Exam Vital Signs: Vital Signs Temp Pulse Resp BP BP Pulse Ox 02/15/19 13:53 64 104/54 L 97 02/15/19 13:47 139/82 02/15/19 13:01 96.0 F 63 18 145/82 H 99 Date Exam was Performed: 02/15/19 Time Exam was Performed: 14:01 - My Orders Last 24 Hours: My Active Orders 02/15/19 12:54 EKG Documentation Completion [RC] STAT 02/15/19 13:03 COMPREHENSIVE METABOLIC PN,CMP [CHEM] Stat TROPONIN I [CHEM] Stat 02/15/19 13:37 Nitroglycerin [Nitrostat] 0.4 mg SL Q5M PRN - Assessment/Plan Last 24 Hours: My Active Orders 02/15/19 12:54 EKG Documentation Completion [RC] STAT 02/15/19 13:03 COMPREHENSIVE METABOLIC PN,CMP [CHEM] Stat TROPONIN I [CHEM] Stat 02/15/19 13:37 Nitroglycerin [Nitrostat] 0.4 mg SL Q5M PRN
[2019-02-15] MEDS ORDERED: Nitroglycerin 0.4 MG Tab.SL SL PRN ×2 (13:37→15:16)
--- NOTE | 2019-02-15 13:53 | CR ---
Chest: Portable view of the chest was obtained. Comparison: Prior chest x-ray of 08/13/18. Heart size is normal. Tortuous thoracic aorta is seen. Lungs are clear with no acute parenchymal change. Previous surgery is noted within the acromioclavicular joint. Impression: 1. Nothing acute is appreciated on portable chest x-ray. Diagnostic code #2 This report was dictated in [place] Standard Time
[2019-02-15 13:54] LABS: BLOOD UREA NITROGEN,BUN 9 mg/dL (7.0-18.0); CARBON DIOXIDE,CO2 23.4 mmol/L (21.0-32.0); CHLORIDE,CL 105 mmol/L (98-107); GLUCOSE RANDOM 87 mg/dL (74-106); POTASSIUM,K 3.3 mmol/L (3.5-5.1); SODIUM,NA 141 mmol/L (136-145)
[2019-02-15] MEDS ORDERED: Morphine 2 MG/ML Syringe IVPUSH PRN (15:06)
[2019-02-15] MEDS ORDERED: Ondansetron 4 MG/2 ML SDV IVPUSH PRN (15:06)
[2019-02-15] MEDS ORDERED: Albuterol/Ipratropium 3.0-0.5 MG/3 ML Neb Soln NEB PRN (15:06)
--- NOTE | 2019-02-15 15:27 | PCM.HP.2 ---
H&P History of Present Illness - General Date of Service: 02/15/19 Admit Problem/Dx: Admission Diagnosis/Problem Admission Diagnosis/Problem Chest pain Source of Information: Patient History Limitations: Reports: No Limitations - History of Present Illness Initial Comments - Free Text/Narative: Patient is a 64 y/o female with PMH of CAD, s/p stent 1 year ago, on DAPT comes in evaluation of chest pain, pain started yesterday and has been getting worse today, she took nitro at home which seemed to improbe the pain but now the pain is back. Patient states pain radiated to her scapula dn down her left arm. CXR was normal, EKG showed NSR no ST/T wave changes, 1st troponin was neagtibe. Patient was admitted to hospital for ACS rule out. Upon further questioning during my interview patient stated that during her last NV her cardiac enzymes were negative, although cardiac cath reveled complete occlusion of LAD. Patient denied fever, chills, abdominal pain, heart burn, urinary symptoms, cough, SOB. Onset of Symptoms: Reports: Today, Sudden Duration of Symptoms: Reports: Hour(s): Quality: Reports: Sharp Severity: Severe Improves with: Reports: Medication Associated Symptoms: Reports: Chest Pain, Nausea/Vomiting. Denies: cough w sputum, Diaphoresis, Fever/Chills, Shortness of Breath chest Pain Score (Numeric/FACES): 7 - Related Data Allergies/Adverse Reactions: Allergies Allergy/AdvReac Type Severity Reaction Status Date / Time meperidine [From Demerol] Allergy Vomiting Verified 02/15/19 14:50 Home Medications: Home Meds Aspirin [Adult Low Dose Aspirin EC] 81 mg PO DAILY 08/13/18 [History] Escitalopram [Lexapro] 20 mg PO DAILY 08/13/18 [History] Montelukast [Singulair] 10 mg PO DAILY 08/13/18 [History] Nitroglycerin 0.4 mg PO ASDIRECTED 08/13/18 [History] QUEtiapine Fumarate [Quetiapine Fumarate] 50 mg PO DAILY 08/13/18 [History] Ticagrelor [Brilinta] 90 mg INH BID 08/13/18 [History] atorvaSTATin [Lipitor] 80 mg PO DAILY 08/13/18 [History] Past Medical History HEENT History: Reports: None Cardiovascular History: Reports: CAD, Hypertension, NV, Stents Other Cardiovascular History: LAD Respiratory History: Reports: COPD Gastrointestinal History: Reports: None Genitourinary History: Reports: None Musculoskeletal History: Reports: Osteoporosis Other Musculoskeletal History: clavicle Neurological History: Reports: None Psychiatric History: Reports: None Endocrine/Metabolic History: Reports: None Hematologic History: Reports: Blood Transfusion(s) Immunologic History: Reports: None Oncologic (Cancer) History: Reports: None Dermatologic History: Reports: None - Infectious Disease History Infectious Disease History: Reports: Chicken Pox, Measles, Mumps - Past Surgical History HEENT Surgical History: Reports: Adenoidectomy, Tonsillectomy Respiratory Surgical History: Reports: Lung Biopsies GI Surgical History: Reports: Cholecystectomy Female Surgical History: Reports: Hysterectomy Other Musculoskeletal Surgeries/Procedures:: back surgery Social & Family History - Family History Family Medical History: Noncontributory - Tobacco Use Smoking Status *Q: Current Every Day Smoker Years of Tobacco use: 10 Packs/Tins Daily: 0.5 - Caffeine Use Caffeine Use: Reports: Soda Caffeine Use Comment: 3 cans of soda a day - Recreational Drug Use Recreational Drug Use: No - Living Situation & Occupation Living situation: Reports: Occupation: Unemployed H&P Review of Systems - Review of Systems: Review Of Systems: See Below General: Denies: Fever, Chills, Malaise HEENT: Denies: Dysphasia, Ear Pain Pulmonary: Denies: Shortness of Breath, Cough, Hemoptysis Cardiovascular: Reports: Chest Pain, Dyspnea on Exertion. Denies: Palpitations , Lightheadedness Gastrointestinal: Denies: Abdominal Pain, Black Stool, Bloody Stool, Constipation, Diarrhea Genitourinary: Denies: Dysuria, Frequency, Burning, Pain, Urgency Musculoskeletal: Denies: Neck Pain, Shoulder Pain, Arm Pain, Back Pain Skin: Denies: Cyanosis, Jaundice, Mottled, Pallor, Diaphoresis Psychiatric: Denies: Confusion, Depression, Mood Lability, Anxiety Neurological: Denies: Confusion, Dizziness, Headache, Numbness Exam - Exam Exam: See Below - Vital Signs Vital Signs: Last Vital Signs Temp 35.6 C 02/15/19 14:35 Pulse 61 02/15/19 14:35 Resp 18 02/15/19 14:35 BP 129/63 02/15/19 14:35 Pulse Ox 97 02/15/19 14:35 Weight: 68.084 kg - Exam General: Alert, Oriented, Moderate Distress HEENT: Conjunctiva Clear Neck: Supple Lungs: Clear to Auscultation, Normal Respiratory Effort Cardiovascular: Regular Rate, Regular Rhythm, Normal S1, Normal S2 GI/Abdominal Exam: Normal Bowel Sounds, Soft, Non-Tender Peripheral Pulses: 3+: Dorsalis Pedis (L), Dorsalis Pedis (R) - Patient Data Lab Results Last 24 hrs: Laboratory Results - last 24 hr 02/15/19 02/15/19 02/15/19 Range/Units 13:03 13:03 13:03 WBC 4.69 (4.0-11.0) K/uL RBC 4.18 L (4.30-5.90) M/uL Hgb 13.0 (12.0-16.0) g/dL Hct 38.8 (36.0-46.0) % MCV 92.8 (80.0-98.0) fL MCH 31.1 (27.0-32.0) pg MCHC 33.5 (31.0-37.0) g/dL RDW Std Deviation 59.1 (28.0-62.0) fl RDW Coeff of [place] 17 H (11.0-15.0) % Plt Count 196 (150-400) K/uL MPV 9.10 (7.40-12.00) fL Neut % (Auto) 69.1 (48.0-80.0) % Lymph % (Auto) 18.1 (16.0-40.0) % [place] % (Auto) 10.9 (0.0-15.0) % Eos % (Auto) 1.5 (0.0-7.0) % Baso % (Auto) 0.4 (0.0-1.5) % Neut # (Auto) 3.2 (1.4-5.7) K/uL Lymph # (Auto) 0.9 (0.6-2.4) K/uL [place] # (Auto) 0.5 (0.0-0.8) K/uL Eos # (Auto) 0.1 (0.0-0.7) K/uL Baso # (Auto) 0.0 (0.0-0.1) K/uL Nucleated RBC % 0.0 /100WBC Nucleated RBCs # 0 K/uL INR 0.96 Sodium 141 (136-145) mmol/L Potassium 3.3 L (3.5-5.1) mmol/L Chloride 105 (98-107) mmol/L Carbon Dioxide 23.4 (21.0-32.0) mmol/L BUN 9 (7.0-18.0) mg/dL Creatinine 0.6 (0.6-1.0) mg/dL Est Cr Clr Drug Dosing 76.30 mL/min Estimated GFR (MDRD) > 60.0 ml/min Glucose 87 (74-106) mg/dL Calcium 9.3 (8.5-10.1) mg/dL Total Bilirubin 1.3 H (0.2-1.0) mg/dL AST 1458 H (15-37) IU/L ALT 1124 H (14-63) IU/L Alkaline Phosphatase 230 H (46-116) U/L Troponin I < 0.050 (0.000-0.056) ng/mL Total Protein 7.0 (6.4-8.2) g/dL Albumin 4.0 (3.4-5.0) g/dL Globulin 3.0 (2.6-4.0) g/dL Albumin/Globulin Ratio 1.3 (0.9-1.6) Result Diagrams: 02/15/19 13:03 02/15/19 13:03 [place] Results Last 24 hrs: Microbiology 02/15/19 13:16 Influenza Type A Antigen Screen - Final Nasopharyngeal Swab NEGATIVE INFLUENZA A VIRUS AG REFERENCE RANGE: NEGATIVE Influenza Type B Antigen Screen - Final NEGATIVE INFLUENZA B VIRUS AG REFERENCE RANGE: NEGATIVE Sepsis Event Note - Evaluation Sepsis Screening Result: No Definite Risk - Focused Exam Vital Signs: Vital Signs Temp Pulse Resp BP BP Pulse Ox 02/15/19 14:35 35.6 C 61 18 129/63 97 02/15/19 14:23 56 L 130/77 97 02/15/19 13:53 64 104/54 L 97 02/15/19 13:47 139/82 02/15/19 13:01 35.6 C 63 18 145/82 H 99 Date Exam was Performed: 02/19/19 Time Exam was Performed: 11:36 *Q Meaningful Use (ADM) - VTE Risk Assess *Q Each Risk Factor Represents 1 Point: None Total Score 1 Point Risk Factors: 0 Each Risk Factor Represents 2 Points: Age 60 - 74 Years Total Score 2 Point Risk Factors: 2 - Problem List (1) Acute coronary syndrome SNOMED Code(s): 186914481 ICD Code: I24.9 - ACUTE ISCHEMIC HEART DISEASE, UNSPECIFIED Status: Acute (2) Orthostasis SNOMED Code(s): 60893099 ICD Code: I95.1 - ORTHOSTATIC HYPOTENSION Status: Acute (3) Coronary artery disease SNOMED Code(s): 26067800 ICD Code: I25.10 - ATHSCL HEART DISEASE OF [place] CORONARY ARTERY W/O ANG PCTRS Status: Chronic Priority: High Qualifiers: Coronary Disease-Associated Artery/Lesion type: [place] artery [place] vs. transplanted heart: [place] heart Associated angina: without angina Qualified Code(s): I25.10 - Atherosclerotic heart disease of [place] coronary artery without angina pectoris (4) Dyslipidemia SNOMED Code(s): 207187047 ICD Code: E78.5 - HYPERLIPIDEMIA, UNSPECIFIED Status: Chronic Priority: Medium (5) Hypertension SNOMED Code(s): 48930917 ICD Code: I10 - ESSENTIAL (PRIMARY) HYPERTENSION Status: Chronic Priority : Medium Qualifiers: Hypertension type: essential hypertension Qualified Code(s): I10 - Essential (primary) hypertension (6) Stented coronary artery Status: Chronic Priority: High (7) Chest pain SNOMED Code(s): 43013249 ICD Code: R07.9 - CHEST PAIN, UNSPECIFIED Status: Acute Problem List Initiated/Reviewed/Updated: Yes Orders Last 24hrs: Active Orders 24 hr Category Date Time Status Admission Status [Patient Status] [ADT] Stat ADT 02/15/19 14:01 Active Antiembolic Devices [RC] PER UNIT ROUTINE Care 02/15/19 15:11 Active Oxygen Therapy [RC] PRN Care 02/15/19 15:07 Active RT Aerosol Therapy [RC] ASDIRECTED Care 02/15/19 15:15 Active Telemetry Monitoring [Cardiac Monitoring] [RC] . Care 02/15/19 14:14 Active DIRECTED VTE/DVT Education [RC] PER UNIT ROUTINE Care 02/15/19 15:07 Active Vital Signs [RC] Q4H Care 02/15/19 15:07 Active Clear Liquid Diet [DIET] Diet 02/15/19 Dinner Active TROPONIN I [CHEM] Q3H Lab 02/15/19 16:00 Ordered TROPONIN I [CHEM] Q3H Lab 02/15/19 19:00 Ordered Albuterol/Ipratropium [DuoNeb 3.0-0.5 MG/3 ML] Med 02/15/19 15:06 Active 3 ml NEB Q4HRRT PRN Aspirin [Halfprin] Med 02/16/19 09:00 Ordered 81 mg PO DAILY Morphine Med 02/15/19 15:06 Active 2 mg IVPUSH Q4H PRN Nitroglycerin [Nitrostat] Med 02/15/19 13:37 Active 0.4 mg SL Q5M PRN Nitroglycerin [Nitrostat] Med 02/15/19 15:16 Active 0.4 mg SL Q5M PRN Ondansetron [Zofran] Med 02/15/19 15:06 Active 4 mg IVPUSH Q4H PRN Ticagrelor Med 02/15/19 21:00 Ordered 90 mg INH BID atorvaSTATin [Lipitor] Med 02/15/19 15:30 Ordered 80 mg PO DAILY Sequential Compression Device [OM.PC] Per Unit Routine Oth 02/15/19 15:09 Ordered Resuscitation Status Routine Resus Stat 02/15/19 15:06 Ordered Medication Orders Albuterol/Ipratropium (Duoneb 3.0-0.5 Mg/3 Ml) 3 ml NEB Q4HRRT PRN PRN Reason: Shortness Of Breath/wheezing Aspirin (Halfprin) 81 mg PO DAILY ELLE Atorvastatin Calcium (Lipitor) 80 mg PO DAILY ELLE Morphine Sulfate (Morphine) 2 mg IVPUSH Q4H PRN PRN Reason: Pain (severe 7-10) Stop: 02/16/19 15:11 Nitroglycerin (Nitrostat) 0.4 mg SL Q5M PRN PRN Reason: Chest Pain Last Admin: 02/15/19 13:47 Dose: 0.4 mg Nitroglycerin (Nitrostat) 0.4 mg SL Q5M PRN PRN Reason: Chest Pain Non-Formulary Medication (Ticagrelor) 90 mg INH BID ELLE Ondansetron HCl (Zofran) 4 mg IVPUSH Q4H PRN PRN Reason: Nausea/Vomiting Assessment/Plan Comment:: Patient is a 64 y/o F with PMH of CAD, s/p stent 1 year bk, comes in for elavatima of chest pain EKG showed NSR, no ischemic changes, CXR normal, vitals stable 1st trop negative, given that she has negative cardiac enzymes during her last NV, and ongoing pain, and being high risk for AMI, NV cant be ruled out based on troponin alone, , 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 Already took her dose of Brilinta, no active bleeding, Hb stable Monitor vitals closely NC for oxygenation Morphine for pain Asa and high dose statin
[2019-02-15] MEDS ORDERED: Enoxaparin 60 MG/0.6 ML Syringe SUBCUT ONE (15:29)
[2019-02-15] MEDS ORDERED: atorvaSTATin 40 MG Tab PO SCH (15:30)
[2019-02-15] MEDS ORDERED: Nitroglycerin/D5W 25 MG/250 ML BOTTLE IV SCH (15:45)
[2019-02-15] MEDS ORDERED: Potassium Chloride 20 MEQ Tab.ER PO ONE (17:40)
[2019-02-15 19:47] LABS: HEMOGLOBIN A1C 5.7 % (4.5-6.2)
[2019-02-16] MEDS ORDERED: Aspirin 81 MG Tab.EC PO SCH (09:00)
== END 2019-02-15 16:42 ==
LOC: MW.ED 12:52 → MW.MS 14:01
PROVIDERS: ADMIT Student in an Organized Health Care Education/Training Program; ATTEND Student in an Organized Health Care Education/Training Program
DX: R07.9 Chest pain, unspecified (principal); I25.10 Atherosclerotic heart disease of native coronary artery without angina pectoris; I10 Essential (primary) hypertension; J44.9 Chronic obstructive pulmonary disease, unspecified; M81.0 Age-related osteoporosis without current pathological fracture; F17.210 Nicotine dependence, cigarettes, uncomplicated; I95.1 Orthostatic hypotension; E78.5 Hyperlipidemia, unspecified; Z95.5 Presence of coronary angioplasty implant and graft; Z88.5 Allergy status to narcotic agent; Z79.82 Long term (current) use of aspirin; Z79.899 Other long term (current) drug therapy
CPT/HCPCS: 36415; 71045; 80053; 83036; 84484; 85025; 85610; 87804; 93005; 96374; 96375; 99285; A9270; J1650; J2270; J2405; J3490; 96372; 96376; 99284; G0378

== ENCOUNTER 2019-06-23 20:52 | Observation (INO) | payer MEDICARE ==
[2019-06-23] MEDS ORDERED: Sodium Chloride 0.9% 1,000 ML IV ONE (21:08)
[2019-06-23] MEDS ORDERED: Sodium Chloride 0.9% 2.5 ML Syringe FLUSH PRN (21:08)
[2019-06-23] MEDS ORDERED: Sodium Chloride 0.9% 10 ML Syringe FLUSH PRN (21:08)
--- NOTE | 2019-06-23 21:32 | CR ---
Chest: Portable view of the chest was obtained. Comparison: Prior chest x-ray of 02/15/19. Heart size and mediastinum are normal. Lungs are clear with no acute parenchymal change. Plate and screws are noted within the distal right clavicle which remains stable. No acute osseous finding is seen. Surgical clips are seen within the upper left abdomen. Impression: 1. Findings as described above. 2. Nothing acute is appreciated on portable chest x-ray. Diagnostic code #2 This report was dictated in MDT
[2019-06-23 21:35] LABS: BLOOD UREA NITROGEN,BUN 10 mg/dL (7.0-18.0); CARBON DIOXIDE,CO2 21.5 mmol/L (21.0-32.0); CHLORIDE,CL 107 mmol/L (98-107); GLUCOSE RANDOM 102 mg/dL (74-106); POTASSIUM,K 3.6 mmol/L (3.5-5.1); SODIUM,NA 141 mmol/L (136-145)
--- NOTE | 2019-06-23 21:54 | EDM.PDOC ---
ED HPI GENERAL MEDICAL PROBLEM - General Chief Complaint: Chest Pain Stated Complaint: CHEST PAIN Time Seen by Provider: 06/23/19 21:21 - History of Present Illness INITIAL COMMENTS - FREE TEXT/NARRATIVE: 64-year-old female presents with chest pain. Patient reports scapular pain off and on not associated with exertion for about 2 weeks. Of note her last heart attack involve some scapular pain as well. She had increasing fatigue during this time. both when she is exerting herself when she is not exerting herself. For at least 3 days she has had some fairly frequent chest heaviness on the front left chest and then in the last 24 hours she is began to have some pain in her left arm and trapezius region. She has been taking nitro for this for several days and it seems to be helping but then the pain comes back. Again this is not associated with exertion. Patient has been taking her aspirin and her Brilinta. She denies any recent trips or travels. No significant shortness of breath. No headaches except for after taking her nitroglycerin. She denies any vision changes or weakness in one hand or 1 foot. No history of DVT or PE. Patient denies any fevers or coughing recently. Patient denies any paroxysmal nocturnal dyspnea or specific dyspnea on exertion. No dysuria. left chest Pain Score (Numeric/FACES): 7 - Related Data Allergies Allergy/AdvReac Type Severity Reaction Status Date / Time meperidine [From Demerol] Allergy Vomiting Verified 06/23/19 21:00 Home Meds: Home Meds Aspirin [Adult Low Dose Aspirin EC] 81 mg PO DAILY 08/13/18 [History] Escitalopram [Lexapro] 20 mg PO DAILY 08/13/18 [History] Montelukast [Singulair] 10 mg PO DAILY 08/13/18 [History] Nitroglycerin 0.4 mg PO ASDIRECTED 08/13/18 [History] QUEtiapine Fumarate [Quetiapine Fumarate] 50 mg PO DAILY 08/13/18 [History] Ticagrelor [Brilinta] 90 mg INH BID 08/13/18 [History] atorvaSTATin [Lipitor] 80 mg PO DAILY 08/13/18 [History] Metoprolol Succinate 25 mg PO DAILY 06/23/19 [History] Past Medical History HEENT History: Reports: None Cardiovascular History: Reports: CAD, Hypertension, [place], Stents Other Cardiovascular History: LAD Respiratory History: Reports: COPD Gastrointestinal History: Reports: None Genitourinary History: Reports: None 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 Musculoskeletal History: Reports: Osteoporosis, Other (See Below) Other Musculoskeletal History: clavicle Neurological History: Reports: None Psychiatric History: Reports: None Endocrine/Metabolic History: Reports: None Hematologic History: Reports: Blood Transfusion(s) Immunologic History: Reports: None Oncologic (Cancer) History: Reports: None Dermatologic History: Reports: None - Infectious Disease History Infectious Disease History: Reports: Chicken Pox, Hepatitis C, Measles, Mumps - Past Surgical History Head Surgeries/Procedures: Reports: None HEENT Surgical History: Reports: Adenoidectomy, Tonsillectomy Cardiovascular Surgical History: Reports: Coronary Artery Stent Respiratory Surgical History: Reports: Lung Biopsies GI Surgical History: Reports: Cholecystectomy Female Surgical History: Reports: Hysterectomy Endocrine Surgical History: Reports: None Neurological Surgical History: Reports: None Musculoskeletal Surgical History: Reports: Other (See Below) Other Musculoskeletal Surgeries/Procedures:: back surgery Oncologic Surgical History: Reports: None Dermatological Surgical History: Reports: None Social & Family History - Family History Family Medical History: Noncontributory - Tobacco Use Smoking Status *Q: Current Every Day Smoker Years of Tobacco use: 20 Packs/Tins Daily: 0.5 - Caffeine Use Caffeine Use: Reports: Soda Caffeine Use Comment: 3 cans of soda a day - Recreational Drug Use Recreational Drug Use: No - Living Situation & Occupation Living situation: Reports: Occupation: Unemployed ED ROS GENERAL - Review of Systems Review Of Systems: Comprehensive ROS is negative, except as noted in HPI. ED EXAM, GENERAL - Physical Exam Free Text/Narrative:: General: No acute distress. Comfortable. Heent: Examination revealed no pallor, no icterus, no lymphadenopathy. The patient has normal posterior pharynx, moist mucous membranes. Neck: Supple. No JVD. No rigidity. Chest: There is some significant tenderness on the left sternal border where some of her chest pressure pressure and pain are that is not present on the contralateral side. Heart: Normal rate. Reg rhythm. No murmurs appreciated. Lungs: Bilaterally clear to auscultation. No focal findings. Abdomen: Nontender, non-distended, soft, no CVA tenderness. Neuro: Pt is moving all four extremities. EOMI. PERRL. Normal speech. Skin: Exposed areas appeared normally perfused, warm, normal color with no meaningful rashes or lesions. Extremities: Peripheral examination revealed no pedal edema. Peripheral pulses were 2+. EKG INTERPRETATION EKG Interpretation Comments: Jennifer. June 23 2019 at 8:56 PM sinus rhythm at 64. QTc 433. Normal axis. No significant ST elevation or depression. Course - Vital Signs Last Recorded V/S: Last Vital Signs Temp 97.5 F 06/23/19 21:00 Pulse 58 L 06/24/19 00:30 Resp 18 06/24/19 00:30 BP 120/59 L 06/24/19 00:30 Pulse Ox 96 06/24/19 00:30 - Orders/Labs/Meds Orders: Active Orders 24 hr Category Date Time Status EKG Documentation Completion [RC] STAT Care 06/23/19 21:09 Active Nitroglycerin [Nitrostat] Med 06/23/19 23:35 Active 0.4 mg SL Q5M PRN Sodium Chloride 0.9% [Saline Flush] Med 06/23/19 21:08 Active 10 ml FLUSH ASDIRECTED PRN Sodium Chloride 0.9% [Saline Flush] Med 06/23/19 21:08 Active 2.5 ml FLUSH ASDIRECTED PRN Saline Lock Insert [OM.PC] Stat Oth 06/23/19 21:08 Ordered Medication Orders Nitroglycerin (Nitrostat) 0.4 mg SL Q5M PRN PRN Reason: Chest Pain Last Admin: 06/23/19 23:53 Dose: 0.4 mg Admin: 06/23/19 23:48 Dose: 0.4 mg Sodium Chloride (Saline Flush) 10 ml FLUSH ASDIRECTED PRN PRN Reason: Keep Vein Open Sodium Chloride (Saline Flush) 2.5 ml FLUSH ASDIRECTED PRN PRN Reason: Keep Vein Open Labs: Laboratory Tests 06/23/19 06/23/19 06/23/19 Range/Units 21:06 21:06 21:06 WBC 5.69 (4.0-11.0) K/uL RBC 4.06 L (4.30-5.90) M/uL Hgb 11.6 L (12.0-16.0) g/dL Hct 36.7 (36.0-46.0) % MCV 90.4 (80.0-98.0) fL MCH 28.6 (27.0-32.0) pg MCHC 31.6 (31.0-37.0) g/dL RDW Std Deviation 46.7 (28.0-62.0) fl RDW Coeff of [place] 14 (11.0-15.0) % Plt Count 244 (150-400) K/uL MPV 9.30 (7.40-12.00) fL Neut % (Auto) 52.4 (48.0-80.0) % Lymph % (Auto) 33.9 (16.0-40.0) % [place] % (Auto) 7.7 (0.0-15.0) % Eos % (Auto) 5.1 (0.0-7.0) % Baso % (Auto) 0.9 (0.0-1.5) % Neut # (Auto) 3.0 (1.4-5.7) K/uL Lymph # (Auto) 1.9 (0.6-2.4) K/uL [place] # (Auto) 0.4 (0.0-0.8) K/uL Eos # (Auto) 0.3 (0.0-0.7) K/uL Baso # (Auto) 0.1 (0.0-0.1) K/uL Nucleated RBC % 0.0 /100WBC Nucleated RBCs # 0 K/uL INR 0.96 Sodium 141 (136-145) mmol/L Potassium 3.6 (3.5-5.1) mmol/L Chloride 107 (98-107) mmol/L Carbon Dioxide 21.5 (21.0-32.0) mmol/L BUN 10 (7.0-18.0) mg/dL Creatinine 0.7 (0.6-1.0) mg/dL Est Cr Clr Drug Dosing 65.40 mL/min Estimated GFR (MDRD) > 60.0 ml/min Glucose 102 (74-106) mg/dL Calcium 8.5 (8.5-10.1) mg/dL Total Bilirubin 0.1 L (0.2-1.0) mg/dL AST 29 (15-37) IU/L ALT 30 (14-63) IU/L Alkaline Phosphatase 81 (46-116) U/L Troponin I < 0.050 (0.000-0.056) ng/mL Total Protein 6.6 (6.4-8.2) g/dL Albumin 3.9 (3.4-5.0) g/dL Globulin 2.7 (2.6-4.0) g/dL Albumin/Globulin Ratio 1.4 (0.9-1.6) Urine Color Urine Appearance Urine pH (5.0-8.0) Ur Specific [place] (1.001-1.035) Urine Protein (NEGATIVE) mg/dL Urine Glucose (UA) (NEGATIVE) mg/dL Urine Ketones (NEGATIVE) mg/dL Urine Occult Blood (NEGATIVE) Urine Nitrite (NEGATIVE) Urine Bilirubin (NEGATIVE) Urine Urobilinogen (<2.0) EU/dL Ur Leukocyte Esterase (NEGATIVE) 06/23/19 06/23/19 Range/Units 23:05 23:08 WBC (4.0-11.0) K/uL RBC (4.30-5.90) M/uL Hgb (12.0-16.0) g/dL Hct (36.0-46.0) % MCV (80.0-98.0) fL MCH (27.0-32.0) pg MCHC (31.0-37.0) g/dL RDW Std Deviation (28.0-62.0) fl RDW Coeff of [place] (11.0-15.0) % Plt Count (150-400) K/uL MPV (7.40-12.00) fL Neut % (Auto) (48.0-80.0) % Lymph % (Auto) (16.0-40.0) % [place] % (Auto) (0.0-15.0) % Eos % (Auto) (0.0-7.0) % Baso % (Auto) (0.0-1.5) % Neut # (Auto) (1.4-5.7) K/uL Lymph # (Auto) (0.6-2.4) K/uL [place] # (Auto) (0.0-0.8) K/uL Eos # (Auto) (0.0-0.7) K/uL Baso # (Auto) (0.0-0.1) K/uL Nucleated RBC % /100WBC Nucleated RBCs # K/uL INR Sodium (136-145) mmol/L Potassium (3.5-5.1) mmol/L Chloride (98-107) mmol/L Carbon Dioxide (21.0-32.0) mmol/L BUN (7.0-18.0) mg/dL Creatinine (0.6-1.0) mg/dL Est Cr Clr Drug Dosing mL/min Estimated GFR (MDRD) ml/min Glucose (74-106) mg/dL Calcium (8.5-10.1) mg/dL Total Bilirubin (0.2-1.0) mg/dL AST (15-37) IU/L ALT (14-63) IU/L Alkaline Phosphatase (46-116) U/L Troponin I < 0.050 (0.000-0.056) ng/mL Total Protein (6.4-8.2) g/dL Albumin (3.4-5.0) g/dL Globulin (2.6-4.0) g/dL Albumin/Globulin Ratio (0.9-1.6) Urine Color YELLOW Urine Appearance CLEAR Urine pH 6.0 (5.0-8.0) Ur Specific [place] 1.020 (1.001-1.035) Urine Protein NEGATIVE (NEGATIVE) mg/dL Urine Glucose (UA) NEGATIVE (NEGATIVE) mg/dL Urine Ketones NEGATIVE (NEGATIVE) mg/dL Urine Occult Blood NEGATIVE (NEGATIVE) Urine Nitrite NEGATIVE (NEGATIVE) Urine Bilirubin NEGATIVE (NEGATIVE) Urine Urobilinogen 0.2 (<2.0) EU/dL Ur Leukocyte Esterase NEGATIVE (NEGATIVE) Meds: Medications Generic Name Dose Route Start Last Admin Trade Name Freq PRN Reason Stop Dose Admin Nitroglycerin 0.4 mg 06/23/19 23:35 06/23/19 23:53 Nitrostat SL 0.4 mg Q5M PRN Administration Chest Pain Sodium Chloride 10 ml 06/23/19 21:08 Saline Flush FLUSH ASDIRECTED PRN Keep Vein Open Sodium Chloride 2.5 ml 06/23/19 21:08 Saline Flush FLUSH ASDIRECTED PRN Keep Vein Open Discontinued Medications Generic Name Dose Route Start Last Admin Trade Name Freq PRN Reason Stop Dose Admin Sodium Chloride 1,000 mls @ 999 mls/hr 06/23/19 21:08 06/23/19 21:13 Normal Saline IV 06/23/19 22:08 999 mls/hr BOLUS ONE Administration Metoclopramide HCl 10 mg 06/23/19 23:10 06/23/19 23:49 Reglan IVPUSH 06/23/19 23:11 10 mg ONETIME ONE Administration Departure - Discharge Information Sepsis Event Note - Evaluation Sepsis Screening Result: No Definite Risk - Focused Exam Vital Signs: Vital Signs Temp Pulse Resp BP BP Pulse Ox 06/24/19 00:00 61 18 115/70 95 06/23/19 23:53 117/73 06/23/19 23:48 140/82 06/23/19 23:30 56 L 18 153/82 H 98 06/23/19 23:00 60 18 140/75 99 06/23/19 21:00 97.5 F 65 18 139/76 97 Date Exam was Performed: 06/24/19 Time Exam was Performed: 00:57 - My Orders Last 24 Hours: My Active Orders 06/23/19 23:35 Nitroglycerin [Nitrostat] 0.4 mg SL Q5M PRN - Assessment/Plan Last 24 Hours: My Active Orders 06/23/19 23:35 Nitroglycerin [Nitrostat] 0.4 mg SL Q5M PRN
[2019-06-23] MEDS ORDERED: Metoclopramide 10 MG/2 ML SDV IVPUSH ONE (23:10)
[2019-06-23] MEDS: Nitroglycerin 0.4 MG Tab.SL SL PRN ×2 (23:48→23:53)
[2019-06-24] MEDS ORDERED: Ondansetron 4 MG/2 ML SDV IVPUSH PRN (01:35)
[2019-06-24] MEDS: Nitroglycerin 0.4 MG Tab.SL SL PRN (01:57)
[2019-06-24] MEDS: Morphine 2 MG/ML Syringe IVPUSH PRN ×2 (01:59→08:28)
[2019-06-24 06:39] LABS: HEMOGLOBIN A1C 5.8 % (4.5-6.2)
[2019-06-24 06:50] LABS: BLOOD UREA NITROGEN,BUN 8 mg/dL (7.0-18.0); CARBON DIOXIDE,CO2 24.8 mmol/L (21.0-32.0); CHLORIDE,CL 111 mmol/L (98-107); GLUCOSE RANDOM 94 mg/dL (74-106); POTASSIUM,K 3.7 mmol/L (3.5-5.1); SODIUM,NA 144 mmol/L (136-145)
[2019-06-24] MEDS ORDERED: Pantoprazole 40 MG in Sodium Chloride 0.9% 10 ML IV ONE (08:59)
--- NOTE | 2019-06-24 08:59 | PCM.HP.2 ---
H&P History of Present Illness - General Date of Service: 06/24/19 Admit Problem/Dx: Admission Diagnosis/Problem Admission Diagnosis/Problem Chest pain Source of Information: Patient History Limitations: Reports: No Limitations - History of Present Illness Initial Comments - Free Text/Narative: This 64 year old female with pmh of CAD and stenting to LAD 17 months ago presented to the ED with complaints of chest heaviness and pain that has been present for 3 days intermittently. She also reports associated fatigue and nausea as well. She states the pain is in her shoulder blader upper back region , radiates to anterior shoulder and chest. Denies activity worsens, the pain comes without triggers. Reports she has been taking Nitro to help with the pain , which is does and then the pain returns. Denies food making it worse. She reports feeling very fatigued and just not right the last week or two. She reports she was NOT taking her medications for up to 8 weeks until recently. She reports she was able to get a refill from an Urgent care a couple weeks ago and started taking her meds again. She has not followed up with cardiology since stenting. She continues to smoke. She denies any fevers or chills. No abdominal pain or urinary concerns. No recreational drug use. She has had a couple gastric surgeries/clippings. In the ED CBC and BMP WNL. EKG SR with no acute ST changes. Troponin negative. CXR negative. HR noted to be in 50s. BP stable. TSH 4.03. Cholesterol total 103 , LDL 39, HDL 59. She will be admitted for chest pain rule out ACS. She was seen her nearly 6 months ago with similar presentation, she was transferred to [place] for further evaluation based on Cardiology recommendations. They trend troponins which were negative. She was found to have acute hepatitis with dilated CBD, MRCP obtained which showed pancreatic cyst no stones. ECHO obtained at that time as well showing hypercontractile left ventricle EF 80%, pulmonary artery pressure estimated at 35 mmHg. She was discharged to follow up with PCP and never followed up. left chest Pain Score (Numeric/FACES): 5 - Related Data Allergies/Adverse Reactions: Allergies Allergy/AdvReac Type Severity Reaction Status Date / Time meperidine [From Demerol] Allergy Vomiting Verified 06/24/19 01:29 Home Medications: Home Meds Aspirin [Adult Low Dose Aspirin EC] 81 mg PO DAILY 08/13/18 [History] Escitalopram [Lexapro] 20 mg PO BEDTIME 08/13/18 [History] Montelukast [Singulair] 10 mg PO DAILY 08/13/18 [History] Nitroglycerin 0.4 mg PO ASDIRECTED 08/13/18 [History] QUEtiapine Fumarate [Quetiapine Fumarate] 50 mg PO DAILY 08/13/18 [History] Ticagrelor [Brilinta] 90 mg PO BID 08/13/18 [History] atorvaSTATin [Lipitor] 80 mg PO DAILY 08/13/18 [History] Metoprolol Succinate 25 mg PO DAILY 06/23/19 [History] Past Medical History HEENT History: Reports: None Cardiovascular History: Reports: CAD, Hypertension, HI, Stents Other Cardiovascular History: LAD Respiratory History: Reports: COPD Gastrointestinal History: Reports: None Genitourinary History: Reports: Renal Calculus [employer] History: Reports: None Musculoskeletal History: Reports: Osteoporosis, Other (See Below) Other Musculoskeletal History: clavicle fractured with surgery X 3 to repair Neurological History: Reports: Migraines Psychiatric History: Reports: PTSD Endocrine/Metabolic History: Reports: None Hematologic History: Reports: Blood Transfusion(s) Immunologic History: Reports: None Oncologic (Cancer) History: Reports: None Dermatologic History: Reports: None - Infectious Disease History Infectious Disease History: Reports: Chicken Pox, Hepatitis C, Measles, Mumps - Past Surgical History Head Surgeries/Procedures: Reports: None HEENT Surgical History: Reports: Adenoidectomy, Tonsillectomy Cardiovascular Surgical History: Reports: Coronary Artery Stent Respiratory Surgical History: Reports: Lung Biopsies GI Surgical History: Reports: Cholecystectomy Female Surgical History: Reports: Hysterectomy, Lithotripsy/ESWL Endocrine Surgical History: Reports: None Neurological Surgical History: Reports: Lumbar Spine Musculoskeletal Surgical History: Reports: Carpal Tunnel, Other (See Below) Other Musculoskeletal Surgeries/Procedures:: back surgery Oncologic Surgical History: Reports: None Dermatological Surgical History: Reports: None Social & Family History - Family History Family Medical History: Noncontributory - Tobacco Use Smoking Status *Q: Current Every Day Smoker Years of Tobacco use: 20 Packs/Tins Daily: 0.5 - Caffeine Use Caffeine Use: Reports: Soda Other Caffeine Use: diet soda 3 cans/day Caffeine Use Comment: 3 cans of soda a day - Alcohol Use Alcohol Use History: No - Recreational Drug Use Recreational Drug Use: No - Living Situation & Occupation Living situation: Reports: Occupation: Unemployed H&P Review of Systems - Review of Systems: Review Of Systems: See Below General: Reports: Malaise, Fatigue. Denies: Fever, Chills Pulmonary: Denies: Shortness of Breath Cardiovascular: Reports: Chest Pain (heaviness starts in back moves to chest). Denies: Orthopnea, Edema, Lightheadedness Gastrointestinal: Reports: No Symptoms. Denies: Abdominal Pain, Black Stool, Bloody Stool, Nausea, Vomiting Genitourinary: Reports: No Symptoms. Denies: Dysuria, Frequency Musculoskeletal: Reports: No Symptoms Skin: Reports: No Symptoms Neurological: Reports: No Symptoms Hematologic/Lymphatic: Reports: No Symptoms Immunologic: Reports: No Symptoms Exam - Exam Exam: See Below - Vital Signs Vital Signs: Last Vital Signs Temp 97.5 F 06/24/19 01:05 Pulse 55 L 06/24/19 02:02 Resp 17 06/24/19 01:05 BP 107/65 06/24/19 02:02 Pulse Ox 97 06/24/19 02:30 Weight: 70.1 kg - Exam General: Alert, Oriented, Cooperative Lungs: Clear to Auscultation, Normal Respiratory Effort Cardiovascular: Regular Rate, Regular Rhythm, Normal S1, Normal S2. No: Systolic Murmur GI/Abdominal Exam: Normal Bowel Sounds, Soft, Non-Tender Extremities: Normal Inspection, Normal Range of Motion, Non-Tender, No Pedal Edema Neuro Extensive - Mental Status: Alert, Oriented x3, Normal Mood/Affect - Patient Data Lab Results Last 24 hrs: Laboratory Results - last 24 hr 06/23/19 06/23/19 06/23/19 Range/Units 21:06 21:06 21:06 WBC 5.69 (4.0-11.0) K/uL RBC 4.06 L (4.30-5.90) M/uL Hgb 11.6 L (12.0-16.0) g/dL Hct 36.7 (36.0-46.0) % MCV 90.4 (80.0-98.0) fL MCH 28.6 (27.0-32.0) pg MCHC 31.6 (31.0-37.0) g/dL RDW Std Deviation 46.7 (28.0-62.0) fl RDW Coeff of [place] 14 (11.0-15.0) % Plt Count 244 (150-400) K/uL MPV 9.30 (7.40-12.00) fL Neut % (Auto) 52.4 (48.0-80.0) % Lymph % (Auto) 33.9 (16.0-40.0) % [place] % (Auto) 7.7 (0.0-15.0) % Eos % (Auto) 5.1 (0.0-7.0) % Baso % (Auto) 0.9 (0.0-1.5) % Neut # (Auto) 3.0 (1.4-5.7) K/uL Lymph # (Auto) 1.9 (0.6-2.4) K/uL [place] # (Auto) 0.4 (0.0-0.8) K/uL Eos # (Auto) 0.3 (0.0-0.7) K/uL Baso # (Auto) 0.1 (0.0-0.1) K/uL Nucleated RBC % 0.0 /100WBC Nucleated RBCs # 0 K/uL INR 0.96 Sodium 141 (136-145) mmol/L Potassium 3.6 (3.5-5.1) mmol/L Chloride 107 (98-107) mmol/L Carbon Dioxide 21.5 (21.0-32.0) mmol/L BUN 10 (7.0-18.0) mg/dL Creatinine 0.7 (0.6-1.0) mg/dL Est Cr Clr Drug Dosing 65.40 mL/min Estimated GFR (MDRD) > 60.0 ml/min Glucose 102 (74-106) mg/dL Hemoglobin A1c (4.5-6.2) % Calcium 8.5 (8.5-10.1) mg/dL Phosphorus (2.6-4.7) mg/dL Magnesium (1.8-2.4) mg/dL Total Bilirubin 0.1 L (0.2-1.0) mg/dL AST 29 (15-37) IU/L ALT 30 (14-63) IU/L Alkaline Phosphatase 81 (46-116) U/L Troponin I < 0.050 (0.000-0.056) ng/mL Total Protein 6.6 (6.4-8.2) g/dL Albumin 3.9 (3.4-5.0) g/dL Globulin 2.7 (2.6-4.0) g/dL Albumin/Globulin Ratio 1.4 (0.9-1.6) Triglycerides (0-200) mg/dL Cholesterol (50-200) mg/dL LDL Cholesterol, Calc (60-180) mg/dL VLDL Cholesterol (5-55) mg/dL HDL Cholesterol (40-60) mg/dL Cholesterol/HDL Ratio (3.3-6.0) TSH 3rd Generation (0.36-3.74) uIU/mL Urine Color Urine Appearance Urine pH (5.0-8.0) Ur Specific [place] (1.001-1.035) Urine Protein (NEGATIVE) mg/dL Urine Glucose (UA) (NEGATIVE) mg/dL Urine Ketones (NEGATIVE) mg/dL Urine Occult Blood (NEGATIVE) Urine Nitrite (NEGATIVE) Urine Bilirubin (NEGATIVE) Urine Urobilinogen (<2.0) EU/dL Ur Leukocyte Esterase (NEGATIVE) 06/23/19 06/23/19 06/24/19 Range/Units 23:05 23:08 02:06 WBC (4.0-11.0) K/uL RBC (4.30-5.90) M/uL Hgb (12.0-16.0) g/dL Hct (36.0-46.0) % MCV (80.0-98.0) fL MCH (27.0-32.0) pg MCHC (31.0-37.0) g/dL RDW Std Deviation (28.0-62.0) fl RDW Coeff of [place] (11.0-15.0) % Plt Count (150-400) K/uL MPV (7.40-12.00) fL Neut % (Auto) (48.0-80.0) % Lymph % (Auto) (16.0-40.0) % [place] % (Auto) (0.0-15.0) % Eos % (Auto) (0.0-7.0) % Baso % (Auto) (0.0-1.5) % Neut # (Auto) (1.4-5.7) K/uL Lymph # (Auto) (0.6-2.4) K/uL [place] # (Auto) (0.0-0.8) K/uL Eos # (Auto) (0.0-0.7) K/uL Baso # (Auto) (0.0-0.1) K/uL Nucleated RBC % /100WBC Nucleated RBCs # K/uL INR Sodium (136-145) mmol/L Potassium (3.5-5.1) mmol/L Chloride (98-107) mmol/L Carbon Dioxide (21.0-32.0) mmol/L BUN (7.0-18.0) mg/dL Creatinine (0.6-1.0) mg/dL Est Cr Clr Drug Dosing mL/min Estimated GFR (MDRD) ml/min Glucose (74-106) mg/dL Hemoglobin A1c (4.5-6.2) % Calcium (8.5-10.1) mg/dL Phosphorus (2.6-4.7) mg/dL Magnesium (1.8-2.4) mg/dL Total Bilirubin (0.2-1.0) mg/dL AST (15-37) IU/L ALT (14-63) IU/L Alkaline Phosphatase (46-116) U/L Troponin I < 0.050 < 0.050 (0.000-0.056) ng/mL Total Protein (6.4-8.2) g/dL Albumin (3.4-5.0) g/dL Globulin (2.6-4.0) g/dL Albumin/Globulin Ratio (0.9-1.6) Triglycerides (0-200) mg/dL Cholesterol (50-200) mg/dL LDL Cholesterol, Calc (60-180) mg/dL VLDL Cholesterol (5-55) mg/dL HDL Cholesterol (40-60) mg/dL Cholesterol/HDL Ratio (3.3-6.0) TSH 3rd Generation (0.36-3.74) uIU/mL Urine Color YELLOW Urine Appearance CLEAR Urine pH 6.0 (5.0-8.0) Ur Specific [place] 1.020 (1.001-1.035) Urine Protein NEGATIVE (NEGATIVE) mg/dL Urine Glucose (UA) NEGATIVE (NEGATIVE) mg/dL Urine Ketones NEGATIVE (NEGATIVE) mg/dL Urine Occult Blood NEGATIVE (NEGATIVE) Urine Nitrite NEGATIVE (NEGATIVE) Urine Bilirubin NEGATIVE (NEGATIVE) Urine Urobilinogen 0.2 (<2.0) EU/dL Ur Leukocyte Esterase NEGATIVE (NEGATIVE) 06/24/19 06/24/19 Range/Units 06:07 06:07 WBC (4.0-11.0) K/uL RBC (4.30-5.90) M/uL Hgb (12.0-16.0) g/dL Hct (36.0-46.0) % MCV (80.0-98.0) fL MCH (27.0-32.0) pg MCHC (31.0-37.0) g/dL RDW Std Deviation (28.0-62.0) fl RDW Coeff of [place] (11.0-15.0) % Plt Count (150-400) K/uL MPV (7.40-12.00) fL Neut % (Auto) (48.0-80.0) % Lymph % (Auto) (16.0-40.0) % [place] % (Auto) (0.0-15.0) % Eos % (Auto) (0.0-7.0) % Baso % (Auto) (0.0-1.5) % Neut # (Auto) (1.4-5.7) K/uL Lymph # (Auto) (0.6-2.4) K/uL [place] # (Auto) (0.0-0.8) K/uL Eos # (Auto) (0.0-0.7) K/uL Baso # (Auto) (0.0-0.1) K/uL Nucleated RBC % /100WBC Nucleated RBCs # K/uL INR Sodium 144 (136-145) mmol/L Potassium 3.7 (3.5-5.1) mmol/L Chloride 111 H (98-107) mmol/L Carbon Dioxide 24.8 (21.0-32.0) mmol/L BUN 8 (7.0-18.0) mg/dL Creatinine 0.6 (0.6-1.0) mg/dL Est Cr Clr Drug Dosing 76.30 mL/min Estimated GFR (MDRD) > 60.0 ml/min Glucose 94 (74-106) mg/dL Hemoglobin A1c 5.8 (4.5-6.2) % Calcium 7.8 L (8.5-10.1) mg/dL Phosphorus 3.7 (2.6-4.7) mg/dL Magnesium 1.8 (1.8-2.4) mg/dL Total Bilirubin (0.2-1.0) mg/dL AST (15-37) IU/L ALT (14-63) IU/L Alkaline Phosphatase (46-116) U/L Troponin I < 0.050 (0.000-0.056) ng/mL Total Protein (6.4-8.2) g/dL Albumin (3.4-5.0) g/dL Globulin (2.6-4.0) g/dL Albumin/Globulin Ratio (0.9-1.6) Triglycerides 53 (0-200) mg/dL Cholesterol 103 (50-200) mg/dL LDL Cholesterol, Calc 39 L (60-180) mg/dL VLDL Cholesterol 10 (5-55) mg/dL HDL Cholesterol 53 (40-60) mg/dL Cholesterol/HDL Ratio 1.9 L (3.3-6.0) TSH 3rd Generation 4.03 H (0.36-3.74) uIU/mL Urine Color Urine Appearance Urine pH (5.0-8.0) Ur Specific [place] (1.001-1.035) Urine Protein (NEGATIVE) mg/dL Urine Glucose (UA) (NEGATIVE) mg/dL Urine Ketones (NEGATIVE) mg/dL Urine Occult Blood (NEGATIVE) Urine Nitrite (NEGATIVE) Urine Bilirubin (NEGATIVE) Urine Urobilinogen (<2.0) EU/dL Ur Leukocyte Esterase (NEGATIVE) Result Diagrams: 06/23/19 21:06 06/24/19 06:07 Sepsis Event Note - Evaluation Sepsis Screening Result: No Definite Risk - Focused Exam Vital Signs: Vital Signs Temp Pulse Resp BP BP Pulse Ox 06/24/19 02:30 97 06/24/19 02:02 55 L 107/65 06/24/19 01:57 56 L 119/70 119/70 06/24/19 01:05 97.5 F 60 17 126/66 95 06/24/19 00:30 58 L 18 120/59 L 96 06/24/19 00:00 61 18 115/70 95 06/23/19 23:53 117/73 06/23/19 23:48 140/82 06/23/19 23:30 56 L 18 153/82 H 98 06/23/19 23:00 60 18 140/75 99 06/23/19 21:00 97.5 F 65 18 139/76 97 Date Exam was Performed: 06/24/19 Time Exam was Performed: 12:47 - Problem List (1) Chest pain SNOMED Code(s): 34520230 ICD Code: R07.9 - CHEST PAIN, UNSPECIFIED Status: Acute Current Visit: No (2) Coronary artery disease SNOMED Code(s): 09717361 ICD Code: I25.10 - ATHSCL HEART DISEASE OF [place] CORONARY ARTERY W/O ANG PCTRS Status: Chronic Priority: High Current Visit: No Qualifiers: Coronary Disease-Associated Artery/Lesion type: [place] artery [place] vs. transplanted heart: [place] heart Associated angina: without angina Qualified Code(s): I25.10 - Atherosclerotic heart disease of [place] coronary artery without angina pectoris (3) Dyslipidemia SNOMED Code(s): 167342020 ICD Code: E78.5 - HYPERLIPIDEMIA, UNSPECIFIED Status: Chronic Priority: Medium Current Visit: No (4) Hypertension SNOMED Code(s): 06442868 ICD Code: I10 - ESSENTIAL (PRIMARY) HYPERTENSION Status: Chronic Priority : Medium Current Visit: No Qualifiers: Hypertension type: essential hypertension Qualified Code(s): I10 - Essential (primary) hypertension (5) Stented coronary artery Status: Chronic Priority: High Current Visit: No Problem List Initiated/Reviewed/Updated: Yes Orders Last 24hrs: Active Orders 24 hr Category Date Time Status Admission Status [Patient Status] [ADT] Routine ADT 06/24/19 01:14 Active Ambulate [RC] ASDIRECTED Care 06/24/19 01:31 Active Oxygen Therapy [RC] CONTINUOUS Care 06/24/19 01:32 Active Pulse Oximetry [RC] ASDIRECTED Care 06/24/19 01:31 Active Telemetry Monitoring [Cardiac Monitoring] [RC] Q8H Care 06/24/19 01:13 Active Vital Signs [RC] Q4H Care 06/24/19 01:29 Active Heart Healthy Diet [DIET] Diet 06/24/19 Breakfast Active Echo Comp wo Cont [US] Routine Exams 06/24/19 01:36 Ordered Aspirin [Halfprin] Med 06/24/19 09:00 Active 81 mg PO DAILY Metoprolol Succinate [Toprol XL] Med 06/24/19 09:00 Active 12.5 mg PO DAILY Montelukast [Singulair] Med 06/24/19 09:00 Active 10 mg PO DAILY Morphine Med 06/24/19 01:34 Active 1 mg IVPUSH Q4H PRN Ondansetron [Zofran] Med 06/24/19 01:35 Active 4 mg IVPUSH Q4H PRN Patient's Own Medication [Ptom] Med 06/24/19 09:00 Active 1 each PO BID QUEtiapine [SEROquel] Med 06/24/19 09:00 Active 50 mg PO DAILY Sodium Chloride 0.9% [Saline Flush] Med 06/23/19 21:08 Active 10 ml FLUSH ASDIRECTED PRN Sodium Chloride 0.9% [Saline Flush] Med 06/23/19 21:08 Active 2.5 ml FLUSH ASDIRECTED PRN atorvaSTATin [Lipitor] Med 06/24/19 09:00 Active 80 mg PO DAILY Obtain Past Medical Record [OM.PC] Routine Oth 06/24/19 08:44 Active Saline Lock Insert [OM.PC] Stat Oth 06/23/19 21:08 Ordered Medication Orders Aspirin (Halfprin) 81 mg PO DAILY [facility] Atorvastatin Calcium (Lipitor) 80 mg PO DAILY [facility] Metoprolol Succinate (Toprol Xl) 12.5 mg PO DAILY [facility] Montelukast Sodium (Singulair) 10 mg PO DAILY [facility] Morphine Sulfate (Morphine) 1 mg IVPUSH Q4H PRN PRN Reason: Pain Last Admin: 06/24/19 08:28 Dose: 1 mg Admin: 06/24/19 01:59 Dose: 1 mg Ondansetron HCl (Zofran) 4 mg IVPUSH Q4H PRN PRN Reason: Nausea/Vomiting Ticagrelor 90 Mg 1 each PO BID [facility] Quetiapine Fumarate (Seroquel) 50 mg PO DAILY [facility] Sodium Chloride (Saline Flush) 10 ml FLUSH ASDIRECTED PRN PRN Reason: Keep Vein Open Sodium Chloride (Saline Flush) 2.5 ml FLUSH ASDIRECTED PRN PRN Reason: Keep Vein Open Assessment/Plan Comment:: This 64 year old female was admitted secondary for chest pain 1. Chest pain - Troponins negative x 4. - VS stable - EKG SR with no acute ischemic changes - HR is slightly bradycardic, Will cut Metoprolol in half, 12.5 mg daily - Will start Imdur 30 mg today. - I spoke with Dr Hedrick, Cardiology [place]. Who agrees acute transfer is not warranted. He is able to see patient next week for further evaluation. Victorina is agreeable with this. referral sent. - Continue Brillinta 2. Hypothyroidism: new diagnosis - TSH 4.03, T4 0.52. Levothyroxine 0.25 mg Discharge Plan: Victorina will be discharged home today, Continue all home medications. Decrease Metoprolol to 12.5 mg daily. I will send Levothyroxine and Imdur prescription in today. She is to follow up with Cardiology in [place] next week for further cardiac work up. She is to stop smoking and be compliant with her medications. She verbalized understanding. She is to return to ED or clinic if concerns should arise. - Mortality Measure Prognosis:: Good
[2019-06-24] MEDS ORDERED: Aspirin 81 MG Tab.Chew PO SCH (09:00)
[2019-06-24] MEDS ORDERED: Montelukast 10 MG Tab PO SCH (09:00)
[2019-06-24] MEDS ORDERED: atorvaSTATin 40 MG Tab PO SCH (09:00)
[2019-06-24] MEDS ORDERED: Metoprolol Succinate 25 MG Tab.ER PO SCH ×2 (09:00)
[2019-06-24] MEDS ORDERED: Aspirin 81 MG Tab.EC PO SCH (09:00)
[2019-06-24] MEDS ORDERED: Isosorbide Mononitrate 30 MG Tab.ER PO SCH (10:30)
[2019-06-24] MEDS ORDERED: Levothyroxine 25 MCG Tab PO SCH (11:36)
--- NOTE | 2019-06-27 11:11 | ECHO ---
EXAM DATE: 06/24/19 PATIENT'S AGE: 64 The ECHO report can be seen in this patient's EMR (Electronic Medical Record) in the REPORTS section. The report has also been scanned into PACS. ROSALBA
== END 2019-06-24 14:45 | disposition home or self-care (01) ==
LOC: MW.ED 20:52 → MW.MS 06-24 00:20
PROVIDERS: ADMIT Student in an Organized Health Care Education/Training Program; ATTEND Student in an Organized Health Care Education/Training Program
DX: R07.9 Chest pain, unspecified (principal); R00.1 Bradycardia, unspecified; I10 Essential (primary) hypertension; J44.9 Chronic obstructive pulmonary disease, unspecified; F17.210 Nicotine dependence, cigarettes, uncomplicated; I25.10 Atherosclerotic heart disease of native coronary artery without angina pectoris; E78.5 Hyperlipidemia, unspecified; E03.9 Hypothyroidism, unspecified; Z95.5 Presence of coronary angioplasty implant and graft; Z88.5 Allergy status to narcotic agent; Z79.82 Long term (current) use of aspirin; Z79.899 Other long term (current) drug therapy
CPT/HCPCS: 36415; 71045; 80048; 80053; 80061; 81003; 83036; 83690; 83735; 84100; 84439; 84443; 84484; 85025; 85610; 93306; A9270; C9113; J2270; J2765; J7030; J7050

== ENCOUNTER 2020-10-20 00:18 | Observation (INO) | payer MEDICARE, OTHER ==
[2020-10-20] MEDS ORDERED: Sodium Chloride 0.9% 2.5 ML Syringe FLUSH PRN (00:25)
[2020-10-20] MEDS ORDERED: Sodium Chloride 0.9% 10 ML Syringe FLUSH PRN (00:25)
--- NOTE | 2020-10-20 00:34 | PCM.EKG ---
#1 Interpretation EKG Interpretation Comments: EKG date October 20, 2020 at 12:25 AM EKG: As interpreted by ER physician: David: Nonspecific ST-T wave abnormalities Normal axis No evidence of ST elevation [place] Normal sinus rhythm heart rate of 67
[2020-10-20] MEDS ORDERED: Ondansetron 4 MG/2 ML SDV IVPUSH ONE (00:43)
[2020-10-20] MEDS ORDERED: Sodium Chloride 0.9% 1,000 ML IV ONE (00:43)
[2020-10-20] MEDS ORDERED: Aspirin 81 MG Tab.Chew PO ONE (00:48)
[2020-10-20] MEDS ORDERED: Morphine 4 MG/ML Syringe IVPUSH ONE ×2 (00:48→02:13)
[2020-10-20] MEDS: Nitroglycerin 0.4 MG Tab.SL SL PRN ×3 (00:54→02:11)
--- NOTE | 2020-10-20 01:03 | EDM.PDOC ---
ED HPI GENERAL MEDICAL PROBLEM - General Chief Complaint: Chest Pain Stated Complaint: BACK HURTS FEELING DIZY Time Seen by Provider: 10/20/20 00:33 - History of Present Illness INITIAL COMMENTS - FREE TEXT/NARRATIVE: HISTORY AND PHYSICAL: History of present illness: This is a 65-year-old female with a history significant for coronary artery disease who is status post a stent in her LAD, history of COPD, history of a chest tube to her left chest many years ago of unclear reason, history of elevated liver enzymes, status post hysterectomy, status post cholecystectomy, who presents ER today complaining of pain and discomfort similar to her prior [place] several years ago. Patient words she has pain to her upper back bilaterally with pain and discomfort radiating down her left arm that started approximate 4 hours ago while she was watching her grandkids. Patient reports that she had associated shortness of breath and nausea. Patient denies any diaphoresis. Patient has a pain and discomfort in her chest and reports that with her prior [place] she did not have any pain or discomfort in her chest either but the symptoms were identical to what she is having currently. Patient denies any recent fevers, shakes, chills. Patient has any vomiting or diarrhea. Patient has any dysuria, frequency or urgency, abdominal pain. Patient reports that she took a shower in hopes that it would improve the discomfort and it did not. Patient reports that the pain does not change with deep inspiration, cough, exertion, palpation. Review of systems: As per history of present illness and below otherwise all systems reviewed and n egative. Past medical history: As per history of present illness and as reviewed below otherwise noncontributory. Surgical history: As per history of present illness and as reviewed below otherwise noncontributory. Social history: No reported history of drug abuse. Family history: As per history of present illness and as reviewed below otherwise noncontributory. Physical exam: This patient was seen and evaluated during the 2019 SARS-CoV-2 novel coronavirus pandemic period. Community viral transmission is ongoing at time of this encounter and the emergency department is operating under pandemic response procedures. Constitutional: Patient is oriented to person, place, and time. Appears well- developed and well-nourished. No distress. HEENT: Moist mucous membranes Head: Normocephalic and atraumatic Eyes: Right eye exhibits no discharge. Left eye exhibits no discharge. No scleral icterus Neck: Normal range of motion. No tracheal deviation present. Cardiovascular: Normal rate and regular rhythm. Pulmonary: Effort normal, no respiratory distress. Abdominal: No distention Musculoskeletal: Normal range of motion Neurologic: Alert and oriented to person, place and time. Skin: [place], warm and dry. Psychiatric: Normal mood and affect. Behavior is normal. Judgment and thought content normal. Nursing note and vital signs have been reviewed Diagnostics: Chest Xray: Normal cardiac silhouette No infiltrates or effusions identified. No PTX No evidence of acute bony fracture. As interpreted by ER MD: Dvaid EKG without STEMI see EKG note Therapeutics: [] Assessment and plan: 65-year-old female with history significant for coronary artery disease status post LAD stents presents ER today with bilateral upper back pain with discomfort rating down her left arm. Patient does have associated shortness of breath and nausea. Patient reports the symptoms are similar to her prior coronary artery disease pain and discomforts. Patient's EKG today upon arrival does not show any evidence of ST elevation [place]. Patient received 1 sublingual nitro as well as 4 of IV morphine with improvement in her pain and discomfort. Patient will have labs drawn and will be reevaluated after results. Patient's labs were all within normal limits. Patient's EKG was unremarkable. Given patient's history and her symptoms patient will need to be admitted for further cardiac evaluation. I discussed the case with Dr. Dove who is agreed to assist this with observation level of care. Definitive disposition and diagnosis as appropriate pending reevaluation and review of above. chest area Pain Score (Numeric/FACES): 4 - Related Data Allergies Allergy/AdvReac Type Severity Reaction Status Date / Time meperidine [From Demerol] Allergy Vomiting Verified 06/24/19 01:29 Home Meds: Home Meds Aspirin [Adult Low Dose Aspirin EC] 81 mg PO DAILY 08/13/18 [History] Escitalopram [Lexapro] 20 mg PO BEDTIME 08/13/18 [History] Montelukast [Singulair] 10 mg PO DAILY 08/13/18 [History] Nitroglycerin 0.4 mg PO ASDIRECTED 08/13/18 [History] QUEtiapine Fumarate [Quetiapine Fumarate] 50 mg PO DAILY 08/13/18 [History] Ticagrelor [Brilinta] 90 mg PO BID 08/13/18 [History] atorvaSTATin [Lipitor] 80 mg PO DAILY 08/13/18 [History] Metoprolol Succinate 25 mg PO DAILY 06/23/19 [History] Isosorbide Mononitrate [Imdur] 30 mg PO DAILY #30 tab.er 06/24/19 [Rx] Levothyroxine 25 mcg PO ACBREAKFAST #30 tablet 06/24/19 [Rx] Past Medical History HEENT History: Reports: None Cardiovascular History: Reports: CAD, Hypertension, [place], Stents Other Cardiovascular History: LAD Respiratory History: Reports: COPD Gastrointestinal History: Reports: None Genitourinary History: Reports: None CERTIFIED TUMOR REGISTRAR History: Reports: None Musculoskeletal History: Reports: Osteoporosis, Other (See Below) Other Musculoskeletal History: clavicle Neurological History: Reports: None Psychiatric History: Reports: None Endocrine/Metabolic History: Reports: None Hematologic History: Reports: Blood Transfusion(s) Immunologic History: Reports: None Oncologic (Cancer) History: Reports: None Dermatologic History: Reports: None - Infectious Disease History Infectious Disease History: Reports: Chicken Pox, Hepatitis C, Measles, Mumps - Past Surgical History Head Surgeries/Procedures: Reports: None HEENT Surgical History: Reports: Adenoidectomy, Tonsillectomy Cardiovascular Surgical History: Reports: Coronary Artery Stent Respiratory Surgical History: Reports: Lung Biopsies GI Surgical History: Reports: Cholecystectomy Female Surgical History: Reports: Hysterectomy Endocrine Surgical History: Reports: None Neurological Surgical History: Reports: None Musculoskeletal Surgical History: Reports: Other (See Below) Other Musculoskeletal Surgeries/Procedures:: back surgery Oncologic Surgical History: Reports: None Dermatological Surgical History: Reports: None Social & Family History - Family History Family Medical History: No Pertinent Family History - Tobacco Use Tobacco Use Status *Q: Current Every Day Tobacco User Years of Tobacco use: 20 Packs/Tins Daily: 1 Used Tobacco, but Quit: No Second Hand Smoke Exposure: Yes - Caffeine Use Caffeine Use: Reports: Soda Other Caffeine Use: diet soda 3 cans/day Caffeine Use Comment: 3 cans of soda a day - Recreational Drug Use Recreational Drug Use: No - Living Situation & Occupation Living situation: Reports: Occupation: Unemployed ED ROS GENERAL - Review of Systems Review Of Systems: See Below ED EXAM, GENERAL - Physical Exam Exam: See Below Course - Vital Signs Last Recorded V/S: Last Vital Signs Temp Pulse 72 10/20/20 00:59 Resp 18 10/20/20 00:59 BP 169/89 H 10/20/20 01:52 Pulse Ox 96 10/20/20 00:59 - Orders/Labs/Meds Orders: Active Orders 24 hr Category Date Time Status Patient Status [ADT] Routine ADT 10/20/20 02:10 Ordered Cardiac Monitoring [RC] . DIRECTED Care 10/20/20 00:25 Active Pulse Oximetry [RC] ASDIRECTED Care 10/20/20 00:25 Active Nitroglycerin [Nitrostat] Med 10/20/20 00:48 Active 0.4 mg SL Q5M PRN Sodium Chloride 0.9% [Saline Flush] Med 10/20/20 00:25 Active 10 ml FLUSH ASDIRECTED PRN Sodium Chloride 0.9% [Saline Flush] Med 10/20/20 00:25 Active 2.5 ml FLUSH ASDIRECTED PRN Saline Lock Insert [OM.PC] Stat Oth 10/20/20 00:25 Ordered Medication Orders Nitroglycerin (Nitroglycerin 0.4 Mg Tab.Sl) 0.4 mg SL Q5M PRN PRN Reason: Chest Pain Last Admin: 10/20/20 01:52 Dose: 0.4 mg Documented by: Admin: 10/20/20 00:54 Dose: 0.4 mg Documented by: REYNALDO Sodium Chloride (Sodium Chloride 0.9% 10 Ml Syringe) 10 ml FLUSH ASDIRECTED PRN PRN Reason: Keep Vein Open Sodium Chloride (Sodium Chloride 0.9% 2.5 Ml Syringe) 2.5 ml FLUSH ASDIRECTED PRN PRN Reason: Keep Vein Open Labs: Laboratory Tests 10/20/20 10/20/20 10/20/20 Range/Units 00:20 00:20 00:20 WBC 5.50 (4.0-11.0) K/uL RBC 4.07 L (4.30-5.90) M/uL Hgb 12.2 (12.0-16.0) g/dL Hct 36.2 (36.0-46.0) % MCV 88.9 (80.0-98.0) fL MCH 30.0 (27.0-32.0) pg MCHC 33.7 (31.0-37.0) g/dL RDW Std Deviation 46.8 (28.0-62.0) fl RDW Coeff of [place] 14 (11.0-15.0) % Plt Count 229 (150-400) K/uL MPV 9.10 (7.40-12.00) fL Neut % (Auto) 59.5 (48.0-80.0) % Lymph % (Auto) 28.2 (16.0-40.0) % [place] % (Auto) 7.1 (0.0-15.0) % Eos % (Auto) 4.5 (0.0-7.0) % Baso % (Auto) 0.7 (0.0-1.5) % Neut # (Auto) 3.3 (1.4-5.7) K/uL Lymph # (Auto) 1.6 (0.6-2.4) K/uL [place] # (Auto) 0.4 (0.0-0.8) K/uL Eos # (Auto) 0.3 (0.0-0.7) K/uL Baso # (Auto) 0.0 (0.0-0.1) K/uL Nucleated RBC % 0.0 /100WBC Nucleated RBCs # 0 K/uL D-Dimer, Quantitative (0.0-0.50) mg/L FEU Sodium 134 L (136-145) mmol/L Potassium 3.3 L (3.5-5.1) mmol/L Chloride 98 (98-107) mmol/L Carbon Dioxide 26.2 (21.0-32.0) mmol/L BUN 5 L (7.0-18.0) mg/dL Creatinine 0.7 (0.6-1.0) mg/dL Est Cr Clr Drug Dosing TNP Estimated GFR (MDRD) > 60.0 ml/min Glucose 91 (74-106) mg/dL Calcium 8.8 (8.5-10.1) mg/dL Magnesium 1.6 L (1.8-2.4) mg/dL Total Bilirubin 0.2 (0.2-1.0) mg/dL AST 23 (15-37) IU/L ALT 49 (14-63) IU/L Alkaline Phosphatase 86 (46-116) U/L Troponin I < 0.050 (0.000-0.056) ng/mL B-Natriuretic Peptide 26 (<100) PG/ML Total Protein 6.9 (6.4-8.2) g/dL Albumin 3.9 (3.4-5.0) g/dL Globulin 3.0 (2.6-4.0) g/dL Albumin/Globulin Ratio 1.3 (0.9-1.6) Urine Color Urine Appearance Urine pH (5.0-8.0) Ur Specific [place] (1.001-1.035) Urine Protein (NEGATIVE) mg/dL Urine Glucose (UA) (NEGATIVE) mg/dL Urine Ketones (NEGATIVE) mg/dL Urine Occult Blood (NEGATIVE) Urine Nitrite (NEGATIVE) Urine Bilirubin (NEGATIVE) Urine Urobilinogen (<2.0) EU/dL Ur Leukocyte Esterase (NEGATIVE) 10/20/20 10/20/20 Range/Units 00:20 01:45 WBC (4.0-11.0) K/uL RBC (4.30-5.90) M/uL Hgb (12.0-16.0) g/dL Hct (36.0-46.0) % MCV (80.0-98.0) fL MCH (27.0-32.0) pg MCHC (31.0-37.0) g/dL RDW Std Deviation (28.0-62.0) fl RDW Coeff of [place] (11.0-15.0) % Plt Count (150-400) K/uL MPV (7.40-12.00) fL Neut % (Auto) (48.0-80.0) % Lymph % (Auto) (16.0-40.0) % [place] % (Auto) (0.0-15.0) % Eos % (Auto) (0.0-7.0) % Baso % (Auto) (0.0-1.5) % Neut # (Auto) (1.4-5.7) K/uL Lymph # (Auto) (0.6-2.4) K/uL [place] # (Auto) (0.0-0.8) K/uL Eos # (Auto) (0.0-0.7) K/uL Baso # (Auto) (0.0-0.1) K/uL Nucleated RBC % /100WBC Nucleated RBCs # K/uL D-Dimer, Quantitative 0.31 (0.0-0.50) mg/L FEU Sodium (136-145) mmol/L Potassium (3.5-5.1) mmol/L Chloride (98-107) mmol/L Carbon Dioxide (21.0-32.0) mmol/L BUN (7.0-18.0) mg/dL Creatinine (0.6-1.0) mg/dL Est Cr Clr Drug Dosing Estimated GFR (MDRD) ml/min Glucose (74-106) mg/dL Calcium (8.5-10.1) mg/dL Magnesium (1.8-2.4) mg/dL Total Bilirubin (0.2-1.0) mg/dL AST (15-37) IU/L ALT (14-63) IU/L Alkaline Phosphatase (46-116) U/L Troponin I (0.000-0.056) ng/mL B-Natriuretic Peptide (<100) PG/ML Total Protein (6.4-8.2) g/dL Albumin (3.4-5.0) g/dL Globulin (2.6-4.0) g/dL Albumin/Globulin Ratio (0.9-1.6) Urine Color YELLOW Urine Appearance CLEAR Urine pH 6.5 (5.0-8.0) Ur Specific [place] <= 1.005 (1.001-1.035) Urine Protein NEGATIVE (NEGATIVE) mg/dL Urine Glucose (UA) NEGATIVE (NEGATIVE) mg/dL Urine Ketones NEGATIVE (NEGATIVE) mg/dL Urine Occult Blood NEGATIVE (NEGATIVE) Urine Nitrite NEGATIVE (NEGATIVE) Urine Bilirubin NEGATIVE (NEGATIVE) Urine Urobilinogen 0.2 (<2.0) EU/dL Ur Leukocyte Esterase NEGATIVE (NEGATIVE) Meds: Medications Generic Name Dose Route Start Last Admin Trade Name Freq PRN Reason Stop Dose Admin Nitroglycerin 0.4 mg 10/20/20 00:48 10/20/20 01:52 Nitroglycerin 0.4 Mg Tab.Sl SL 0.4 mg Q5M PRN Administration Chest Pain Sodium Chloride 10 ml 10/20/20 00:25 Sodium Chloride 0.9% 10 Ml Syringe FLUSH ASDIRECTED PRN Keep Vein Open Sodium Chloride 2.5 ml 10/20/20 00:25 Sodium Chloride 0.9% 2.5 Ml Syringe FLUSH ASDIRECTED PRN Keep Vein Open Discontinued Medications Generic Name Dose Route Start Last Admin Trade Name Clemente PRN Reason Stop Dose Admin Aspirin 324 mg 10/20/20 00:48 10/20/20 00:54 Aspirin 81 Mg Tab.Chew PO 10/20/20 00:49 324 mg ONETIME ONE Administration Sodium Chloride 1,000 mls @ 999 mls/hr 10/20/20 00:43 10/20/20 00:49 Normal Saline IV 10/20/20 01:43 999 mls/hr .Bolus ONE Administration Morphine Sulfate 4 mg 10/20/20 00:48 10/20/20 00:54 Morphine 4 Mg/Ml Syringe IVPUSH 10/20/20 00:49 4 mg ONETIME ONE Administration Ondansetron HCl 4 mg 10/20/20 00:43 10/20/20 00:49 Ondansetron 4 Mg/2 Ml Sdv IVPUSH 10/20/20 00:44 4 mg ONETIME ONE Administration Departure - Departure Time of Disposition: 02:11 Disposition: Refer to Observation Condition: Good Clinical Impression: Acute coronary syndrome - Discharge Information Referrals: PCP,None [Primary Care Provider] - Forms: ED Department Discharge Sepsis Event Note (ED) - Focused Exam Vital Signs: Vital Signs Pulse Resp BP BP Pulse Ox 10/20/20 01:52 169/89 H 10/20/20 00:59 72 18 122/57 L 96 10/20/20 00:54 173/93 H - My Orders Last 24 Hours: My Active Orders 10/20/20 00:25 Cardiac Monitoring [RC] . DIRECTED Pulse Oximetry [RC] ASDIRECTED Sodium Chloride 0.9% [Saline Flush] 10 ml FLUSH ASDIRECTED PRN Sodium Chloride 0.9% [Saline Flush] 2.5 ml FLUSH ASDIRECTED PRN Saline Lock Insert [OM.PC] Stat 10/20/20 00:48 Nitroglycerin [Nitrostat] 0.4 mg SL Q5M PRN 10/20/20 02:10 Patient Status [ADT] Routine - Assessment/Plan Last 24 Hours: My Active Orders 10/20/20 00:25 Cardiac Monitoring [RC] . DIRECTED Pulse Oximetry [RC] ASDIRECTED Sodium Chloride 0.9% [Saline Flush] 10 ml FLUSH ASDIRECTED PRN Sodium Chloride 0.9% [Saline Flush] 2.5 ml FLUSH ASDIRECTED PRN Saline Lock Insert [OM.PC] Stat 10/20/20 00:48 Nitroglycerin [Nitrostat] 0.4 mg SL Q5M PRN 10/20/20 02:10 Patient Status [ADT] Routine
[2020-10-20 01:22] LABS: BLOOD UREA NITROGEN,BUN 5 mg/dL (7.0-18.0); CARBON DIOXIDE,CO2 26.2 mmol/L (21.0-32.0); CHLORIDE,CL 98 mmol/L (98-107); GLUCOSE RANDOM 91 mg/dL (74-106); POTASSIUM,K 3.3 mmol/L (3.5-5.1); SODIUM,NA 134 mmol/L (136-145)
--- NOTE | 2020-10-20 01:34 | CR ---
INDICATION: Dizzy TECHNIQUE: Chest radiograph 1 view COMPARISON: 06/23/2019 FINDINGS: Mediastinum: The mediastinum is normal in appearance. The heart silhouette is normal in size and morphology. Lung: Mild bibasilar linear atelectasis is noted. No sign of pleural effusion seen. No pneumothorax is identified. Bone and Soft tissue: Metallic plate ORIF of the right clavicle is present change. Severe diffuse osteopenia seen. IMPRESSION: 1. Mild bibasilar linear atelectasis is noted. Dictated by Mandeep Bella MD @ 10/20/2020 1:33:12 AM Dictated by: Mandeep Bella MD @ 10/20/2020 01:33:18 (Electronically Signed)
[2020-10-20] MEDS ORDERED: Ondansetron 4 MG/2 ML SDV IVPUSH PRN (03:36)
[2020-10-20] MEDS: Morphine 2 MG/ML SYRINGE IVPUSH PRN ×3 (05:07→12:18)
[2020-10-20] MEDS: Levothyroxine 25 MCG Tab PO SCH (06:36)
--- NOTE | 2020-10-20 07:43 | PCM.HP.2 ---
H&P History of Present Illness - General Date of Service: 10/20/20 Admit Problem/Dx: Admission Diagnosis/Problem Admission Diagnosis/Problem Acute coronary syndrome - History of Present Illness Initial Comments - Free Text/Narative: This is a 65-year-old female with past medical history of coronary artery diseas e status post LAD stent, COPD not requiring home oxygen, presented to the ER complaining of pain and discomfort in her upper back, chest, radiating down to left arm. Patient states pain started roughly 2 days ago but has been increasing in severity. Patient does have past history of KS and states that prior to her previous KS she was experiencing similar pain. On admission patient state states that she still has mild chest pain, upper back pain, shortness of breath, and wheezing. Patient denies nausea, vomiting,, diaphoresis. Patient denies fever, chills, abdominal pain. Lab work on admission to include white blood cell count 5.5, D-dimer 0.31, potassium 3.3, BUN 5, creatinine 0.7, magnesium 1.6, troponin negative x3, UA negative. Chest x-ray impression-mild bibasilar linear atelectasis noted, no signs of pleural effusion or pneumothorax EKG interpretation in the ED-normal sinus rhythm, rate 67, no signs of ST elevation [place] Patient admitted to the medical floor, telemetry, observation for ACS rule out. chest area Pain Score (Numeric/FACES): 4 Bilateral shoulder blades Pain Score (Numeric/FACES): 5 - Related Data Allergies/Adverse Reactions: Allergies Allergy/AdvReac Type Severity Reaction Status Date / Time meperidine [From Demerol] Allergy Intermediate Vomiting Verified 10/20/20 03:15 Home Medications: Home Meds Aspirin [Adult Low Dose Aspirin EC] 81 mg PO DAILY 08/13/18 [History] Escitalopram [Lexapro] 20 mg PO BEDTIME 08/13/18 [History] Alendronate [Fosamax] 10 mg PO DAILY 10/20/20 [History] Calcium Carbonate [Calcium] 600 mg PO BID 10/20/20 [History] Ipratropium/Albuterol Sulfate [Iprat-Albut 0.5-3(2.5) MG/3 ML] 3 ml IH BID 10/20/20 [History] Isosorbide Mononitrate [Imdur] 60 mg PO DAILY 10/20/20 [History] Levothyroxine 25 mcg PO ACBREAKFAST 10/20/20 [History] Metoprolol Tartrate 25 mg PO DAILY 10/20/20 [History] QUEtiapine Fumarate [Quetiapine Fumarate ER] 300 mg PO DAILY 10/20/20 [History] Past Medical History HEENT History: Reports: None Cardiovascular History: Reports: CAD, Hypertension, [place], Stents Other Cardiovascular History: LAD Respiratory History: Reports: COPD Gastrointestinal History: Reports: None Genitourinary History: Reports: Renal Calculus [employer] History: Reports: Musculoskeletal History: Reports: Osteoporosis, Other (See Below) Other Musculoskeletal History: clavicle Neurological History: Reports: Migraines Psychiatric History: Reports: None Endocrine/Metabolic History: Reports: Hypothyroidism Hematologic History: Reports: Blood Transfusion(s) Immunologic History: Reports: None Oncologic (Cancer) History: Reports: None Dermatologic History: Reports: None - Infectious Disease History Infectious Disease History: Reports: Chicken Pox, Hepatitis C, Measles, Mumps - Past Surgical History Head Surgeries/Procedures: Reports: None HEENT Surgical History: Reports: Adenoidectomy, Tonsillectomy Cardiovascular Surgical History: Reports: Coronary Artery Stent Respiratory Surgical History: Reports: Lung Biopsies, Thoracentesis GI Surgical History: Reports: Cholecystectomy, Colonoscopy Other GI Surgeries/Procedures: "2 Stomach staplings" Female Surgical History: Reports: Hysterectomy, Ureteral Stent Endocrine Surgical History: Reports: None Neurological Surgical History: Reports: None Musculoskeletal Surgical History: Reports: Carpal Tunnel, Shoulder Surgery, Other (See Below) Other Musculoskeletal Surgeries/Procedures:: Back surgery x2, right shoulder surgery x3 Oncologic Surgical History: Reports: None Dermatological Surgical History: Reports: None Social & Family History - Family History Family Medical History: No Pertinent Family History - Tobacco Use Tobacco Use Status *Q: Current Every Day Tobacco User Years of Tobacco use: 20 Packs/Tins Daily: 0.5 Used Tobacco, but Quit: No Second Hand Smoke Exposure: Yes - Caffeine Use Caffeine Use: Reports: Soda, Tea Other Caffeine Use: diet soda 3 cans/day Caffeine Use Comment: 3 cans of soda a day - Recreational Drug Use Recreational Drug Use: No - Living Situation & Occupation Living situation: Reports: Occupation: Unemployed H&P Review of Systems - Review of Systems: Review Of Systems: See Below General: Reports: Weakness, Fatigue. Denies: Fever, Chills Pulmonary: Reports: Wheezing, Cough. Denies: Shortness of Breath Cardiovascular: Reports: Chest Pain. Denies: Orthopnea, Edema Gastrointestinal: Denies: Abdominal Pain, Nausea, Vomiting Genitourinary: Denies: Dysuria Musculoskeletal: Reports: Arm Pain (left arm), Back Pain (upper back) Psychiatric: Denies: Confusion Neurological: Denies: Confusion, Dizziness, Headache Exam - Exam Exam: See Below - Vital Signs Vital Signs: Last Vital Signs Temp 96.8 F L 10/20/20 02:50 Pulse 64 10/20/20 02:50 Resp 17 10/20/20 02:50 BP 165/88 H 10/20/20 02:50 Pulse Ox 97 10/20/20 02:50 Weight: 166 lb 1.6 oz - Exam General: Alert, Oriented Lungs: Normal Respiratory Effort, Wheezing Cardiovascular: Regular Rate, Regular Rhythm GI/Abdominal Exam: Soft, Non-Tender Extremities: No Pedal Edema Neuro Extensive - Mental Status: Alert Psychiatric: Alert - Patient Data Lab Results Last 24 hrs: Laboratory Results - last 24 hr 10/20/20 10/20/20 10/20/20 Range/Units 00:20 00:20 00:20 WBC 5.50 (4.0-11.0) K/uL RBC 4.07 L (4.30-5.90) M/uL Hgb 12.2 (12.0-16.0) g/dL Hct 36.2 (36.0-46.0) % MCV 88.9 (80.0-98.0) fL MCH 30.0 (27.0-32.0) pg MCHC 33.7 (31.0-37.0) g/dL RDW Std Deviation 46.8 (28.0-62.0) fl RDW Coeff of [place] 14 (11.0-15.0) % Plt Count 229 (150-400) K/uL MPV 9.10 (7.40-12.00) fL Neut % (Auto) 59.5 (48.0-80.0) % Lymph % (Auto) 28.2 (16.0-40.0) % [place] % (Auto) 7.1 (0.0-15.0) % Eos % (Auto) 4.5 (0.0-7.0) % Baso % (Auto) 0.7 (0.0-1.5) % Neut # (Auto) 3.3 (1.4-5.7) K/uL Lymph # (Auto) 1.6 (0.6-2.4) K/uL [place] # (Auto) 0.4 (0.0-0.8) K/uL Eos # (Auto) 0.3 (0.0-0.7) K/uL Baso # (Auto) 0.0 (0.0-0.1) K/uL Nucleated RBC % 0.0 /100WBC Nucleated RBCs # 0 K/uL D-Dimer, Quantitative (0.0-0.50) mg/L FEU Sodium 134 L (136-145) mmol/L Potassium 3.3 L (3.5-5.1) mmol/L Chloride 98 (98-107) mmol/L Carbon Dioxide 26.2 (21.0-32.0) mmol/L BUN 5 L (7.0-18.0) mg/dL Creatinine 0.7 (0.6-1.0) mg/dL Est Cr Clr Drug Dosing TNP Estimated GFR (MDRD) > 60.0 ml/min Glucose 91 (74-106) mg/dL Calcium 8.8 (8.5-10.1) mg/dL Magnesium 1.6 L (1.8-2.4) mg/dL Total Bilirubin 0.2 (0.2-1.0) mg/dL AST 23 (15-37) IU/L ALT 49 (14-63) IU/L Alkaline Phosphatase 86 (46-116) U/L Troponin I < 0.050 (0.000-0.056) ng/mL B-Natriuretic Peptide 26 (<100) PG/ML Total Protein 6.9 (6.4-8.2) g/dL Albumin 3.9 (3.4-5.0) g/dL Globulin 3.0 (2.6-4.0) g/dL Albumin/Globulin Ratio 1.3 (0.9-1.6) Urine Color Urine Appearance Urine pH (5.0-8.0) Ur Specific [place] (1.001-1.035) Urine Protein (NEGATIVE) mg/dL Urine Glucose (UA) (NEGATIVE) mg/dL Urine Ketones (NEGATIVE) mg/dL Urine Occult Blood (NEGATIVE) Urine Nitrite (NEGATIVE) Urine Bilirubin (NEGATIVE) Urine Urobilinogen (<2.0) EU/dL Ur Leukocyte Esterase (NEGATIVE) 10/20/20 10/20/20 Range/Units 00:20 01:45 WBC (4.0-11.0) K/uL RBC (4.30-5.90) M/uL Hgb (12.0-16.0) g/dL Hct (36.0-46.0) % MCV (80.0-98.0) fL MCH (27.0-32.0) pg MCHC (31.0-37.0) g/dL RDW Std Deviation (28.0-62.0) fl RDW Coeff of [place] (11.0-15.0) % Plt Count (150-400) K/uL MPV (7.40-12.00) fL Neut % (Auto) (48.0-80.0) % Lymph % (Auto) (16.0-40.0) % [place] % (Auto) (0.0-15.0) % Eos % (Auto) (0.0-7.0) % Baso % (Auto) (0.0-1.5) % Neut # (Auto) (1.4-5.7) K/uL Lymph # (Auto) (0.6-2.4) K/uL [place] # (Auto) (0.0-0.8) K/uL Eos # (Auto) (0.0-0.7) K/uL Baso # (Auto) (0.0-0.1) K/uL Nucleated RBC % /100WBC Nucleated RBCs # K/uL D-Dimer, Quantitative 0.31 (0.0-0.50) mg/L FEU Sodium (136-145) mmol/L Potassium (3.5-5.1) mmol/L Chloride (98-107) mmol/L Carbon Dioxide (21.0-32.0) mmol/L BUN (7.0-18.0) mg/dL Creatinine (0.6-1.0) mg/dL Est Cr Clr Drug Dosing Estimated GFR (MDRD) ml/min Glucose (74-106) mg/dL Calcium (8.5-10.1) mg/dL Magnesium (1.8-2.4) mg/dL Total Bilirubin (0.2-1.0) mg/dL AST (15-37) IU/L ALT (14-63) IU/L Alkaline Phosphatase (46-116) U/L Troponin I (0.000-0.056) ng/mL B-Natriuretic Peptide (<100) PG/ML Total Protein (6.4-8.2) g/dL Albumin (3.4-5.0) g/dL Globulin (2.6-4.0) g/dL Albumin/Globulin Ratio (0.9-1.6) Urine Color YELLOW Urine Appearance CLEAR Urine pH 6.5 (5.0-8.0) Ur Specific [place] <= 1.005 (1.001-1.035) Urine Protein NEGATIVE (NEGATIVE) mg/dL Urine Glucose (UA) NEGATIVE (NEGATIVE) mg/dL Urine Ketones NEGATIVE (NEGATIVE) mg/dL Urine Occult Blood NEGATIVE (NEGATIVE) Urine Nitrite NEGATIVE (NEGATIVE) Urine Bilirubin NEGATIVE (NEGATIVE) Urine Urobilinogen 0.2 (<2.0) EU/dL Ur Leukocyte Esterase NEGATIVE (NEGATIVE) Result Diagrams: 10/20/20 00:20 10/20/20 00:20 Sepsis Event Note - Evaluation Sepsis Screening Result: No Definite Risk - Focused Exam Vital Signs: Vital Signs Temp Pulse Resp BP BP Pulse Ox 10/20/20 02:50 96.8 F L 64 17 165/88 H 97 10/20/20 02:30 97.2 F 61 18 154/80 H 98 10/20/20 02:11 139/80 10/20/20 01:52 169/89 H 10/20/20 00:59 97.3 F 72 18 122/57 L 96 10/20/20 00:54 173/93 H - Problem List (1) COPD (chronic obstructive pulmonary disease) SNOMED Code(s): 02724850 ICD Code: J44.9 - CHRONIC OBSTRUCTIVE PULMONARY DISEASE, UNSPECIFIED Status: Acute Current Visit: Yes (2) Acute coronary syndrome SNOMED Code(s): 848670489 ICD Code: I24.9 - ACUTE ISCHEMIC HEART DISEASE, UNSPECIFIED Status: Acute Current Visit: No (3) Chest pain SNOMED Code(s): 87132281 ICD Code: R07.9 - CHEST PAIN, UNSPECIFIED Status: Acute Current Visit: Yes Qualifiers: Chest pain type: unspecified Qualified Code(s): R07.9 - Chest pain, unspecified (4) Coronary artery disease SNOMED Code(s): 05526649 ICD Code: I25.10 - ATHSCL HEART DISEASE OF [place] CORONARY ARTERY W/O ANG PCTRS Status: Chronic Priority: High Current Visit: Yes Qualifiers: Coronary Disease-Associated Artery/Lesion type: [place] artery [place] vs. transplanted heart: [place] heart Associated angina: without angina Qualified Code(s): I25.10 - Atherosclerotic heart disease of [place] coronary artery without angina pectoris (5) Hypertension SNOMED Code(s): 60583999 ICD Code: I10 - ESSENTIAL (PRIMARY) HYPERTENSION Status: Chronic Priority: Medium Current Visit: Yes Qualifiers: Hypertension type: essential hypertension (6) Stented coronary artery Status: Chronic Priority: High Current Visit: No Problem List Initiated/Reviewed/Updated: Yes Orders Last 24hrs: Active Orders 24 hr Category Date Time Status Patient Status [ADT] Routine ADT 10/20/20 02:10 Active Cardiac Monitoring [RC] Q8H Care 10/20/20 00:25 Active Pulse Oximetry [RC] ASDIRECTED Care 10/20/20 00:25 Active Telemetry Monitoring [Cardiac Monitoring] [RC] . Care 10/20/20 03:34 Active DIRECTED Regular Diet [DIET] Diet 10/20/20 Breakfast Active TROPONIN I [CHEM] Routine Lab 10/20/20 06:00 Ordered TROPONIN I [CHEM] Routine Lab 10/20/20 12:00 Ordered Alendronate Med 10/20/20 09:00 Pending 10 mg PO DAILY Aspirin [Halfprin] Med 10/20/20 09:00 Active 81 mg PO DAILY Calcium Carbonate [[place] Calcium] Med 10/20/20 09:00 Active 600 mg PO BID Escitalopram [Lexapro] Med 10/20/20 21:00 Active 20 mg PO BEDTIME Isosorbide Mononitrate [Imdur] Med 10/20/20 09:00 Active 60 mg PO DAILY Levothyroxine Med 10/20/20 07:30 Active 25 mcg PO ACBREAKFAST Metoprolol Tartrate [Lopressor] Med 10/20/20 09:00 Active 25 mg PO DAILY Morphine Med 10/20/20 04:30 Active 2 mg IVPUSH Q3H PRN Ondansetron [Zofran] Med 10/20/20 03:36 Active 4 mg IVPUSH Q4H PRN QUEtiapine Fumarate [Quetiapine Fumarate ER] Med 10/20/20 09:00 Pending 300 mg PO DAILY Sodium Chloride 0.9% [Saline Flush] Med 10/20/20 00:25 Active 10 ml FLUSH ASDIRECTED PRN Sodium Chloride 0.9% [Saline Flush] Med 10/20/20 00:25 Active 2.5 ml FLUSH ASDIRECTED PRN Saline Lock Insert [OM.PC] Stat Oth 10/20/20 00:25 Ordered Medication Orders Aspirin (Aspirin 81 Mg Tab.Ec) 81 mg PO DAILY [facility] Calcium Carbonate/Glycine (Calcium Carbonate 500 Mg Tablet) 600 mg PO BID [facility] Escitalopram Oxalate (Escitalopram 10 Mg Tab) 20 mg PO BEDTIME [facility] Isosorbide Mononitrate (Isosorbide Mononitrate 30 Mg Tab.Er) 60 mg PO DAILY [facility] Levothyroxine Sodium (Levothyroxine 25 Mcg Tab) 25 mcg PO ACBREAKFAST [place] Last Admin: 10/20/20 06:36 Dose: 25 mcg Documented by: MICHAEL Metoprolol Tartrate (Metoprolol Tartrate 25 Mg Tab) 25 mg PO DAILY [facility] Morphine Sulfate (Morphine 2 Mg/Ml Syringe) 2 mg IVPUSH Q3H PRN PRN Reason: Pain Last Admin: 10/20/20 05:07 Dose: 2 mg Documented by: MICHAEL Non-Formulary Medication (Alendronate) 10 mg PO DAILY [facility] Non-Formulary Medication (Quetiapine Fumarate [Quetiapine Fumarate Er]) 300 mg PO DAILY [facility] Ondansetron HCl (Ondansetron 4 Mg/2 Ml Sdv) 4 mg IVPUSH Q4H PRN PRN Reason: Nausea/Vomiting Sodium Chloride (Sodium Chloride 0.9% 10 Ml Syringe) 10 ml FLUSH ASDIRECTED PRN PRN Reason: Keep Vein Open Sodium Chloride (Sodium Chloride 0.9% 2.5 Ml Syringe) 2.5 ml FLUSH ASDIRECTED PRN PRN Reason: Keep Vein Open Assessment/Plan Comment:: ACS rule out- EKG impression in the ED noted normal sinus rhythm, heart rate 67, no signs of ST segment elevation [place]. Troponin x3 Ordered further lab work to include lipid panel, TSH, hemoglobin A1c, vitamin D. Hydrocodone 5 mg every 4 hour for chest/upper back pain Resume aspirin, Imdur, metoprolol GERD- Protonix 40mg q24hr, Of note patient states that she drinks roughly [address] Winkler every day, day and a half, and has been doing so for the last 6 years. Patient highly encouraged to discontinue such severe consumption of soft drinks. COPD-DuoNebs as needed. Patient currently not requiring oxygen support. Regular diet, SCDs
[2020-10-20] MEDS ORDERED: Potassium Chloride 20 MEQ Tab.ER PO ONE (07:51)
[2020-10-20] MEDS ORDERED: Magnesium Sulfate/Water 2 GM in Premix Bag 1 BAG IV ONE (07:52)
[2020-10-20] MEDS: Calcium Carbonate 500 MG Tablet PO SCH ×2 (08:40→20:00)
[2020-10-20] MEDS: Aspirin 81 MG Tab.EC PO SCH (08:41)
[2020-10-20] MEDS: Metoprolol Tartrate 25 MG Tab PO SCH (08:41)
[2020-10-20] MEDS: Isosorbide Mononitrate 30 MG Tab.ER PO SCH (08:42)
[2020-10-20] MEDS: Albuterol/Ipratropium 3.0-0.5 MG/3 ML Neb Soln NEB PRN (09:46)
[2020-10-20] MEDS: QUETIAPINE FUMARATE 300 MG PO SCH (12:12)
[2020-10-20] MEDS: Acetaminophen/HYDROcodone 325-5 MG Tab PO PRN ×2 (16:00→20:01)
[2020-10-20] MEDS ORDERED: Pantoprazole 40 MG in Sodium Chloride 0.9% 10 ML IV SCH (17:00)
[2020-10-20] MEDS ORDERED: Escitalopram 10 MG Tab PO SCH (21:00)
[2020-10-21] MEDS: Acetaminophen/HYDROcodone 325-5 MG Tab PO PRN ×3 (00:13→08:39)
[2020-10-21] MEDS: Albuterol/Ipratropium 3.0-0.5 MG/3 ML Neb Soln NEB PRN (00:16)
[2020-10-21] MEDS: Levothyroxine 25 MCG Tab PO SCH (06:59)
[2020-10-21 08:02] LABS: HEMOGLOBIN A1C 5.4 %
[2020-10-21 08:24] LABS: BLOOD UREA NITROGEN,BUN 9 mg/dL (7.0-18.0); CARBON DIOXIDE,CO2 26.1 mmol/L (21.0-32.0); CHLORIDE,CL 102 mmol/L (98-107); GLUCOSE RANDOM 92 mg/dL (74-106); POTASSIUM,K 4.2 mmol/L (3.5-5.1); SODIUM,NA 136 mmol/L (136-145)
[2020-10-21] MEDS: Calcium Carbonate 500 MG Tablet PO SCH (08:38)
[2020-10-21] MEDS: Metoprolol Tartrate 25 MG Tab PO SCH (08:38)
[2020-10-21] MEDS: Isosorbide Mononitrate 30 MG Tab.ER PO SCH (08:38)
[2020-10-21] MEDS: Aspirin 81 MG Tab.EC PO SCH (08:38)
[2020-10-21] MEDS: QUETIAPINE FUMARATE 300 MG PO SCH (08:39)
--- NOTE | 2020-10-21 13:27 | PCM.DCSUM1 ---
<Niharika Glover - Last Filed: 10/21/20 13:51> Discharge Summary - Hospital Course Free Text/Narrative:: 65-year-old female with history of CAD s/p LAD stent, COPD who presented to the ER with pain in her epigastrium, upper back, chest radiating to left arm. Patient was admitted for ACS rule out, troponin negative x3. EKG was normal sinus with no signs of ST elevation. Chest x-ray showed mild bibasilar atelectasis. Patient was managed with aspirin, home Imdur and metoprolol. She received Protonix 40mg IV daily. Patient drinks [address] Winkler daily and was counseled on the importance of healthy diet and discontinuing her soda use. Patient's hemoglobin A1c was 5.4, triglycerides 151, cholesterol 171 and LDL 87. TSH was 3.48. Urinalysis was unremarkable. Patient's chest pain improved and she is being discharged and set up with a outpatient stress test. Patient will arrange a PCP, and she will follow up outpatient. - Discharge Data Discharge Date: 10/21/20 Discharge Disposition: Home, Self-Care 01 Condition: Stable - Referral to Home Health Primary Care Physician: PCP None - Patient Instructions Diet: Heart Healthy Diet Activity: As Tolerated Notify Provider of: Increased Pain Other/Special Instructions: You are being discharged on an acid suppressant medication, which helped you in the hospital. Please take omeprazole 30 minutes before breakfast, once a day for 2 weeks. You were given a prescription for a stress test to check your heart monitor the stress of exercise. Please follow- up with your PCP for a post hospital visit and medication review. Patient to reduce consumption of soda. If you experience chest pain, palpitations, shortness of breath, lightheadedness, loss of consciousness, please seek medical attention immediately. - Discharge Plan *PRESCRIPTION DRUG MONITORING PROGRAM REVIEWED*: Not Applicable *COPY OF PRESCRIPTION DRUG MONITORING REPORT IN PATIENT HANK: Not Applicable Prescriptions/Med Rec: Omeprazole 20 mg PO ACBREAKFAST 14 Days #[address] Richards Medications: Home Meds Aspirin [Adult Low Dose Aspirin EC] 81 mg PO DAILY 08/13/18 [History] Escitalopram [Lexapro] 20 mg PO BEDTIME 08/13/18 [History] Alendronate [Fosamax] 10 mg PO DAILY 10/20/20 [History] Calcium Carbonate [Calcium] 600 mg PO BID 10/20/20 [History] Ipratropium/Albuterol Sulfate [Iprat-Albut 0.5-3(2.5) MG/3 ML] 3 ml IH BID 10/20/20 [History] Isosorbide Mononitrate [Imdur] 60 mg PO DAILY 10/20/20 [History] Levothyroxine 25 mcg PO ACBREAKFAST 10/20/20 [History] Metoprolol Tartrate 25 mg PO DAILY 10/20/20 [History] QUEtiapine Fumarate [Quetiapine Fumarate ER] 300 mg PO DAILY 10/20/20 [History] Omeprazole 20 mg PO ACBREAKFAST 14 Days #14 tablet. 10/21/20 [Rx] Patient Handouts: Nonspecific Chest Pain, Adult, [id number], Omeprazole tablets (OTC) Forms: ED Department Discharge Referrals: PCP,None [Primary Care Provider] - (Someone from the Clinic will call you tomorrow for the appointment date and time.) - Discharge Summary/Plan Comment DC Time >30 min.: Yes Total # of Minutes for Discharge Time: 31 - General Info Admission Dx/Problem (Free Text: Admission Diagnosis/Problem Admission Diagnosis/Problem Acute coronary syndrome - Review of Systems General: Reports: No Symptoms HEENT: Reports: No Symptoms Pulmonary: Reports: No Symptoms Cardiovascular: Denies: Chest Pain, Palpitations, Dyspnea on Exertion, Edema Gastrointestinal: Denies: Abdominal Pain, Constipation, Hematochezia, Melena, Nausea, Vomiting Genitourinary: Reports: No Symptoms Musculoskeletal: Reports: No Symptoms Skin: Reports: No Symptoms Neurological: Reports: No Symptoms - Patient Data Vitals - Most Recent: Last Vital Signs Temp 97.1 F 10/21/20 12:19 Pulse 61 10/21/20 12:19 Resp 18 10/21/20 12:19 BP 105/61 10/21/20 12:19 Pulse Ox 92 L 10/21/20 12:19 Weight - Most Recent: 75.342 kg I&O - Last 24 hours: Intake & Output 10/20/20 10/21/20 10/21/20 22:59 06:59 14:59 Intake Total 960 1120 Output Total 1500 1500 Balance -540 -380 Lab Results - Last 24 hrs: Laboratory Results - last 24 hr 10/20/20 10/21/20 10/21/20 Range/Units 06:21 06:07 06:07 WBC 5.03 (4.0-11.0) K/uL RBC 3.79 L (4.30-5.90) M/uL Hgb 11.2 L (12.0-16.0) g/dL Hct 33.9 L (36.0-46.0) % MCV 89.4 (80.0-98.0) fL MCH 29.6 (27.0-32.0) pg MCHC 33.0 (31.0-37.0) g/dL RDW Std Deviation 48.1 (28.0-62.0) fl RDW Coeff of Kameron 15 (11.0-15.0) % Plt Count 206 (150-400) K/uL MPV 9.40 (7.40-12.00) fL Neut % (Auto) 57.5 (48.0-80.0) % Lymph % (Auto) 29.2 (16.0-40.0) % [place] % (Auto) 9.9 (0.0-15.0) % Eos % (Auto) 2.8 (0.0-7.0) % Baso % (Auto) 0.6 (0.0-1.5) % Neut # (Auto) 2.9 (1.4-5.7) K/uL Lymph # (Auto) 1.5 (0.6-2.4) K/uL [place] # (Auto) 0.5 (0.0-0.8) K/uL Eos # (Auto) 0.1 (0.0-0.7) K/uL Baso # (Auto) 0.0 (0.0-0.1) K/uL Nucleated RBC % 0.0 /100WBC Nucleated RBCs # 0 K/uL Sodium 136 (136-145) mmol/L Potassium 4.2 (3.5-5.1) mmol/L Chloride 102 (98-107) mmol/L Carbon Dioxide 26.1 (21.0-32.0) mmol/L BUN 9 (7.0-18.0) mg/dL Creatinine 0.7 (0.6-1.0) mg/dL Est Cr Clr Drug Dosing 64.51 mL/min Estimated GFR (MDRD) > 60.0 ml/min Glucose 92 (74-106) mg/dL Hemoglobin A1c (4.5 - 6.2) % Calcium 8.2 L (8.5-10.1) mg/dL Magnesium 2.0 (1.8-2.4) mg/dL Total Bilirubin 0.2 (0.2-1.0) mg/dL AST 122 H (15-37) IU/L ALT 174 H (14-63) IU/L Alkaline Phosphatase 100 (46-116) U/L Total Protein 5.8 L (6.4-8.2) g/dL Albumin 3.3 L (3.4-5.0) g/dL Globulin 2.5 L (2.6-4.0) g/dL Albumin/Globulin Ratio 1.3 (0.9-1.6) Triglycerides 151 (0-200) mg/dL Cholesterol 171 (50-200) mg/dL LDL Cholesterol, Calc 87 (60-180) mg/dL VLDL Cholesterol 30 (5-55) mg/dL HDL Cholesterol 54 (40-60) mg/dL Cholesterol/HDL Ratio 3.2 L (3.3-6.0) Vitamin D 25-Hydroxy 112.4 H (30.0-100.0) ng/mL TSH, Ultra Sensitive 3.48 (0.36-3.74) uIU/mL 10/21/20 Range/Units 06:07 WBC (4.0-11.0) K/uL RBC (4.30-5.90) M/uL Hgb (12.0-16.0) g/dL Hct (36.0-46.0) % MCV (80.0-98.0) fL MCH (27.0-32.0) pg MCHC (31.0-37.0) g/dL RDW Std Deviation (28.0-62.0) fl RDW Coeff of Kameron (11.0-15.0) % Plt Count (150-400) K/uL MPV (7.40-12.00) fL Neut % (Auto) (48.0-80.0) % Lymph % (Auto) (16.0-40.0) % Labette % (Auto) (0.0-15.0) % Eos % (Auto) (0.0-7.0) % Baso % (Auto) (0.0-1.5) % Neut # (Auto) (1.4-5.7) K/uL Lymph # (Auto) (0.6-2.4) K/uL Labette # (Auto) (0.0-0.8) K/uL Eos # (Auto) (0.0-0.7) K/uL Baso # (Auto) (0.0-0.1) K/uL Nucleated RBC % /100WBC Nucleated RBCs # K/uL Sodium (136-145) mmol/L Potassium (3.5-5.1) mmol/L Chloride (98-107) mmol/L Carbon Dioxide (21.0-32.0) mmol/L BUN (7.0-18.0) mg/dL Creatinine (0.6-1.0) mg/dL Est Cr Clr Drug Dosing mL/min Estimated GFR (MDRD) ml/min Glucose (74-106) mg/dL Hemoglobin A1c 5.4 (4.5 - 6.2) % Calcium (8.5-10.1) mg/dL Magnesium (1.8-2.4) mg/dL Total Bilirubin (0.2-1.0) mg/dL AST (15-37) IU/L ALT (14-63) IU/L Alkaline Phosphatase (46-116) U/L Total Protein (6.4-8.2) g/dL Albumin (3.4-5.0) g/dL Globulin (2.6-4.0) g/dL Albumin/Globulin Ratio (0.9-1.6) Triglycerides (0-200) mg/dL Cholesterol (50-200) mg/dL LDL Cholesterol, Calc (60-180) mg/dL VLDL Cholesterol (5-55) mg/dL HDL Cholesterol (40-60) mg/dL Cholesterol/HDL Ratio (3.3-6.0) Vitamin D 25-Hydroxy (30.0-100.0) ng/mL TSH, Ultra Sensitive (0.36-3.74) uIU/mL Med Orders - Current: Current Medications Albuterol/Ipratropium (Albuterol/Ipratropium 3.0-0.5 Mg/3 Ml Neb Soln) 3 ml NEB Q4HRRT PRN PRN Reason: Shortness of Breath Last Admin: 10/21/20 00:16 Dose: 3 ml Documented by: Aspirin (Aspirin 81 Mg Tab.Ec) 81 mg PO DAILY [facility] Last Admin: 10/21/20 08:38 Dose: 81 mg Documented by: Calcium Carbonate/Glycine (Calcium Carbonate 500 Mg Tablet) 600 mg PO BID [facility] Last Admin: 10/21/20 08:38 Dose: 600 mg Documented by: Escitalopram Oxalate (Escitalopram 10 Mg Tab) 20 mg PO BEDTIME [facility] Last Admin: 10/20/20 20:00 Dose: 20 mg Documented by: Pantoprazole Sodium 40 mg/ (Sodium Chloride) 10 mls @ 300 mls/hr IV Q24H [facility] Last Admin: 10/20/20 18:13 Dose: 300 mls/hr Documented by: Isosorbide Mononitrate (Isosorbide Mononitrate 30 Mg Tab.Er) 60 mg PO DAILY [facility] Last Admin: 10/21/20 08:38 Dose: 60 mg Documented by: Levothyroxine Sodium (Levothyroxine 25 Mcg Tab) 25 mcg PO ACBREAKFAST [facility] Last Admin: 10/21/20 06:59 Dose: 25 mcg Documented by: Metoprolol Tartrate (Metoprolol Tartrate 25 Mg Tab) 25 mg PO DAILY [facility] Last Admin: 10/21/20 08:38 Dose: 25 mg Documented by: Ondansetron HCl (Ondansetron 4 Mg/2 Ml Sdv) 4 mg IVPUSH Q4H PRN PRN Reason: Nausea/Vomiting Alendronate 10 Mg (Tablet) 1 each PO ACBREAKFAST [facility] Last Admin: 10/21/20 07:00 Dose: Not Given Documented by: Quetiapine Fumarate [Quetiapine Fumarate Er] 300 Mg Tab.E 1 each PO DAILY [facility] Last Admin: 10/21/20 08:39 Dose: Not Given Documented by: Sodium Chloride (Sodium Chloride 0.9% 10 Ml Syringe) 10 ml FLUSH ASDIRECTED PRN PRN Reason: Keep Vein Open Sodium Chloride (Sodium Chloride 0.9% 2.5 Ml Syringe) 2.5 ml FLUSH ASDIRECTED PRN PRN Reason: Keep Vein Open Discontinued Medications Hydrocodone Bitart/Acetaminophen (Acetaminophen/Hydrocodone 325-5 Mg Tab) 1 tab PO Q4H PRN PRN Reason: Pain Last Admin: 10/21/20 08:39 Dose: 1 tab Documented by: Aspirin (Aspirin 81 Mg Tab.Chew) 324 mg PO ONETIME ONE Stop: 10/20/20 00:49 Last Admin: 10/20/20 00:54 Dose: 324 mg Documented by: Sodium Chloride (Normal Saline) 1,000 mls @ 999 mls/hr IV .Bolus ONE Stop: 10/20/20 01:43 Last Admin: 10/20/20 00:49 Dose: 999 mls/hr Documented by: Magnesium Sulfate 2 gm/ Premix 50 mls @ 12.5 mls/hr IV ONETIME ONE Stop: 10/20/20 11:51 Last Admin: 10/20/20 08:45 Dose: 12.5 mls/hr Documented by: Morphine Sulfate (Morphine 4 Mg/Ml Syringe) 4 mg IVPUSH ONETIME ONE Stop: 10/20/20 00:49 Last Admin: 10/20/20 00:54 Dose: 4 mg Documented by: Morphine Sulfate (Morphine 4 Mg/Ml Syringe) 4 mg IVPUSH ONETIME ONE Stop: 10/20/20 02:14 Last Admin: 10/20/20 02:32 Dose: 4 mg Documented by: Morphine Sulfate (Morphine 2 Mg/Ml Syringe) 2 mg IVPUSH Q3H PRN PRN Reason: Pain Last Admin: 10/20/20 12:18 Dose: 2 mg Documented by: Nitroglycerin (Nitroglycerin 0.4 Mg Tab.Sl) 0.4 mg SL Q5M PRN PRN Reason: Chest Pain Last Admin: 10/20/20 02:11 Dose: 0.4 mg Documented by: Ondansetron HCl (Ondansetron 4 Mg/2 Ml Sdv) 4 mg IVPUSH ONETIME ONE Stop: 10/20/20 00:44 Last Admin: 10/20/20 00:49 Dose: 4 mg Documented by: Potassium Chloride (Potassium Chloride 20 Meq Tab.Er) 40 meq PO ONETIME ONE Stop: 10/20/20 07:52 Last Admin: 10/20/20 08:40 Dose: 40 meq Documented by: - Exam General: Reports: Alert, Oriented, Cooperative HEENT: Reports: Pupils Equal Neck: Reports: Supple, No JVD Lungs: Reports: Wheezing Cardiovascular: Reports: Regular Rate, Regular Rhythm, No Murmurs GI/Abdominal Exam: Normal Bowel Sounds, Soft, Non-Tender Back Exam: Reports: Normal Inspection Extremities: Normal Inspection, Non-Tender, No Pedal Edema Skin: Reports: Warm, Intact Neurological: Reports: No New Focal Deficit <Mando Dove - Last Filed: 10/23/20 15:34> Discharge Summary - Referral to [facility] Primary Care Physician: PCP None - Patient Data Vitals - Most Recent: Last Vital Signs Temp 36.2 C 10/21/20 12:19 Pulse 61 10/21/20 12:19 Resp 18 10/21/20 12:19 BP 105/61 10/21/20 12:19 Pulse Ox 92 L 10/21/20 12:19 Med Orders - Current: Current Medications Discontinued Medications Hydrocodone Bitart/Acetaminophen (Acetaminophen/Hydrocodone 325-5 Mg Tab) 1 tab PO Q4H PRN PRN Reason: Pain Last Admin: 10/21/20 08:39 Dose: 1 tab Documented by: Albuterol/Ipratropium (Albuterol/Ipratropium 3.0-0.5 Mg/3 Ml Neb Soln) 3 ml NEB Q4HRRT PRN PRN Reason: Shortness of Breath Last Admin: 10/21/20 00:16 Dose: 3 ml Documented by: Aspirin (Aspirin 81 Mg Tab.Chew) 324 mg PO ONETIME ONE Stop: 10/20/20 00:49 Last Admin: 10/20/20 00:54 Dose: 324 mg Documented by: Aspirin (Aspirin 81 Mg Tab.Ec) 81 mg PO DAILY [facility] Last Admin: 10/21/20 08:38 Dose: 81 mg Documented by: Calcium Carbonate/Glycine (Calcium Carbonate 500 Mg Tablet) 600 mg PO BID [facility] Last Admin: 10/21/20 08:38 Dose: 600 mg Documented by: Escitalopram Oxalate (Escitalopram 10 Mg Tab) 20 mg PO BEDTIME [facility] Last Admin: 10/20/20 20:00 Dose: 20 mg Documented by: Sodium Chloride (Normal Saline) 1,000 mls @ 999 mls/hr IV .Bolus ONE Stop: 10/20/20 01:43 Last Admin: 10/20/20 00:49 Dose: 999 mls/hr Documented by: Magnesium Sulfate 2 gm/ Premix 50 mls @ 12.5 mls/hr IV ONETIME ONE Stop: 10/20/20 11:51 Last Admin: 10/20/20 08:45 Dose: 12.5 mls/hr Documented by: Pantoprazole Sodium 40 mg/ (Sodium Chloride) 10 mls @ 300 mls/hr IV Q24H [facility] Last Admin: 10/20/20 18:13 Dose: 300 mls/hr Documented by: Isosorbide Mononitrate (Isosorbide Mononitrate 30 Mg Tab.Er) 60 mg PO DAILY [facility] Last Admin: 10/21/20 08:38 Dose: 60 mg Documented by: Levothyroxine Sodium (Levothyroxine 25 Mcg Tab) 25 mcg PO ACBREAKFAST [facility] Last Admin: 10/21/20 06:59 Dose: 25 mcg Documented by: Metoprolol Tartrate (Metoprolol Tartrate 25 Mg Tab) 25 mg PO DAILY [facility] Last Admin: 10/21/20 08:38 Dose: 25 mg Documented by: Morphine Sulfate (Morphine 4 Mg/Ml Syringe) 4 mg IVPUSH ONETIME ONE Stop: 10/20/20 00:49 Last Admin: 10/20/20 00:54 Dose: 4 mg Documented by: Morphine Sulfate (Morphine 4 Mg/Ml Syringe) 4 mg IVPUSH ONETIME ONE Stop: 10/20/20 02:14 Last Admin: 10/20/20 02:32 Dose: 4 mg Documented by: Morphine Sulfate (Morphine 2 Mg/Ml Syringe) 2 mg IVPUSH Q3H PRN PRN Reason: Pain Last Admin: 10/20/20 12:18 Dose: 2 mg Documented by: Nitroglycerin (Nitroglycerin 0.4 Mg Tab.Sl) 0.4 mg SL Q5M PRN PRN Reason: Chest Pain Last Admin: 10/20/20 02:11 Dose: 0.4 mg Documented by: Ondansetron HCl (Ondansetron 4 Mg/2 Ml Sdv) 4 mg IVPUSH ONETIME ONE Stop: 10/20/20 00:44 Last Admin: 10/20/20 00:49 Dose: 4 mg Documented by: Ondansetron HCl (Ondansetron 4 Mg/2 Ml Sdv) 4 mg IVPUSH Q4H PRN PRN Reason: Nausea/Vomiting [facility] (Tablet) [facility] Last Admin: 10/21/20 07:00 Dose: Not Given Documented by: Quetiapine Fumarate [Quetiapine Fumarate Er] 300 Mg Tab.E 1 each PO DAILY [facility] Last Admin: 10/21/20 08:39 Dose: Not Given Documented by: Potassium Chloride (Potassium Chloride 20 Meq Tab.Er) 40 meq PO ONETIME ONE Stop: 10/20/20 07:52 Last Admin: 10/20/20 08:40 Dose: 40 meq Documented by: Sodium Chloride (Sodium Chloride 0.9% 10 Ml Syringe) 10 ml FLUSH ASDIRECTED PRN PRN Reason: Keep Vein Open Sodium Chloride (Sodium Chloride 0.9% 2.5 Ml Syringe) 2.5 ml FLUSH ASDIRECTED PRN PRN Reason: Keep Vein Open - Free Text/Narrative Note: I have seen and examined the patient with the resident. I have discussed findings and treatment plan with the resident. I agree with the assessment and plan in the following note.
--- NOTE | 2020-10-23 16:18 | PCM.EKG ---
#1 Interpretation EKG Date: 10/20/20 Time: 15:42 Rhythm: NSR Rate (Beats/Min): 76 P-Wave: Present QRS: Normal ST-T: Normal
== END 2020-10-21 14:15 | disposition home or self-care (01) ==
LOC: MW.ED 00:18 → MW.MS 02:10
PROVIDERS: ADMIT Internal Medicine; ATTEND Internal Medicine
DX: R07.9 Chest pain, unspecified (principal); J44.9 Chronic obstructive pulmonary disease, unspecified; I25.10 Atherosclerotic heart disease of native coronary artery without angina pectoris; Z88.8 Allergy status to other drugs, medicaments and biological substances; I25.2 Old myocardial infarction; M81.0 Age-related osteoporosis without current pathological fracture; E03.9 Hypothyroidism, unspecified; F17.210 Nicotine dependence, cigarettes, uncomplicated; K21.9 Gastro-esophageal reflux disease without esophagitis; I10 Essential (primary) hypertension; Z79.890 Hormone replacement therapy; Z79.899 Other long term (current) drug therapy
CPT/HCPCS: 36415; 71045; 80053; 80061; 81003; 82306; 83036; 83735; 83880; 84443; 84484; 85025; 85379; 93005; 94640; 96374; 96375; 96376; 99285; A9270; C9113; J2270; J2405; J3475; J7030; 96365; 96366; G0378; J7620-GY